=== PATIENT | female | born 2000 | race Caucasian/White ===

== ENCOUNTER 2022-03-02 05:16 | Inpatient (IN) ==
--- NOTE | 2022-02-23 11:17 | Anesthesiology Consultation ---
Date of Service February 23, 2022 Assessment & Plan (1) Encounter for pre-operative examination: COVID screening: Per assessment on 02/23: No known COVID-19 positive contacts or current COVID-19 related symptoms. Travel screen negative. At surgeon discretion if preop Covid testing being done. Chart Review Chart Review: dividend deposit entry clerk initiated History Surgery Operation Date: 03/02/22 07:30 Proposed Procedures p Repeat Section in LD - Trace Mariee MD Height/Weight Height: 5 ft 3 in Weight: 115.212 kg Allergies Allergy/AdvReac Type Severity Reaction Status Date / Time No Known Allergies Allergy Verified 11/12/21 23:54 Medications Home Medications Medication Instructions Recorded Confirmed Last Taken cyanocobalamin (vitamin B-12) 100 100 mcg PO DAILY 11/12/21 02/23/22 02/20/22 09:00 mcg tablet (Vitamin B-12) iron,carbonyl 65 mg-vitamin C 125 1 tab PO DAILY 11/12/21 02/23/22 02/20/22 09 :00 mg tablet,delayed release (Vitron-C) prenat.vits,cheri,ego-mvsi-wzfkj 1 tab PO DAILY 11/12/21 02/23/22 02/20/22 09:00 folic acid 1 mg tablet 1 mg PO DAILY 02/07/22 02/23/22 02/20/22 09:00 albuterol sulfate 90 mcg/actuation 1 inh inhalation QID PRN SOB 02/23/22 02/23/22 Unknown aerosol inhaler Past Medical History Medical History (Updated 02/23/22 @ 11:16 by Alina Thomson) Anemia IRON INFUSIONS > LAST 12/2021 Anxiety and depression Asthma History of COVID-19 2019 > NO PROBLEMS/RESOLVED History of hypertension PTSD (post-traumatic stress disorder) SAB (spontaneous ) 03/2021 Past Family History Family History Mother Hypertension Grandmother (Paternal) Diabetes Grandfather (Maternal) Cancer Aunt Cancer Other No family history of adverse response to anesthesia Past Surgical History Surgical History H/O knee surgery LEFT History of delivery 3 hour push History of tooth extraction Social History Smoking Status: Never smoker Hx Alcohol Use: No Hx Substance Use: No substance use type: does not use Lab Results Anesthesia Preop Results Results Anesthesia Widget: WBC 15.48 K/ul (4.8-10.8) H 02/21/22 Hgb 12.1 g/dl (12.0-16.0) 02/21/22 Hct 35.8 % (34.1-44.9) 02/21/22 Plt 223 K/uL (130-400) 02/21/22 Na 136 mmol/L (136-145) 02/21/22 K 3.6 mmol/L (3.5-5.1) 02/21/22 Cl 104 mmol/L (98-107) 02/21/22 CO2 23 mmol/L (21-32) 02/21/22 BUN 5 mg/dl (6-23) L 02/21/22 Creat 0.41 mg/dl (0.6-1.2) L 02/21/22 Glucose Level 91 mg/dl (70-99(Fasting)) 02/21/22
[~2022-03-02 05:16] MED LIST: SODIUM CHLORIDE 0.9% 250 ML IV PRN
[2022-03-02] MEDS ORDERED: LACTATED RINGER'S 1,000 ML IV SCH (06:00)
[2022-03-02] MEDS ORDERED: ceFAZolin 3,000 MG in DEXTROSE 5% 50 ML IV SCH (06:00)
[2022-03-02] MEDS ORDERED: CITRIC ACID/SODIUM CITRATE 15 ML UDC PO SCH (06:00)
[2022-03-02 06:34] LABS: Basophils # (auto) 0.06 K/uL (0-0.2); Basophils % (auto) 0.4 %; Eosinophils % (auto) 0.6 %; Hematocrit (blood only) 34.9 % (34.1-44.9); Hemoglobin 11.9 g/dl (12.0-16.0); Immature Granulocytes # (auto) 0.13 K/uL (0.00-0.02); Immature Granulocytes % (auto) 0.8 %; Lymphocytes # (auto) 2.97 K/uL (1.2-3.4); Lymphocytes % (auto) 18.5 %; Mean Corpuscular Hemoglobin 29.4 pg (25.0-34.0); Mean Corpuscular Hgb Conc 34.1 g/dL (32.0-36.0); Mean Corpuscular Volume 86.2 fL (80.0-100.0); Mean Platelet Volume 10.3 fL (9.4-12.3); Monocytes # (auto) 1.13 K/uL (0.24-0.82); Neutrophils # (auto) 11.67 K/uL (1.4-6.5); Neutrophils % (auto) 72.7 %; Platelet Count 221 K/uL (130-400); RDW Coefficient of Variation 15.9 % (11.5-14.5); RDW Standard Deviation 50.1 fL (36.4-46.3); Red Blood Count 4.05 M/uL (3.93-5.22); White Blood Count 16.06 K/ul (4.8-10.8)
[2022-03-02] MEDS ORDERED: ONDANSETRON INJ 2 MG/ML 2 ML VIAL ONE (06:59)
[2022-03-02] MEDS ORDERED: fentaNYL citrate 100 MCG/2 ML VIAL ONE (06:59)
[2022-03-02] MEDS ORDERED: MoRPHine SULFATE PF 1 MG/ML 10 ML AMP/VIAL ONE (06:59)
[2022-03-02] MEDS ORDERED: PHENYLEPHRINE HCL 10 MG/ML VIAL ONE (07:00)
[2022-03-02] MEDS ORDERED: KETOROLAC 30 MG/ML VIAL ONE (07:00)
[2022-03-02] MEDS ORDERED: OXYTOCIN 10 UNITS/ML VIAL ONE (07:14)
[2022-03-02] MEDS ORDERED: miSOPROStoL 200 MCG TAB ONE (07:16)
--- NOTE | 2022-03-02 08:14 | History & Physical Bridge Note ---
Date of Service March 02, 2022 History & Physical Bridge Note I have examined the patient, reviewed the History & Physical and in the interval since the performance of the History & Physical I have noted the following changes of clinical significance: no changes noted
[2022-03-02] MEDS ORDERED: ACETAMINOPHEN 1,000 MG/100 ML VIAL IV PRN (08:45)
[2022-03-02] MEDS ORDERED: ONDANSETRON INJ 2 MG/ML 2 ML VIAL IV PRN (08:45)
[2022-03-02] MEDS ORDERED: DC INTRASPINAL MORPHINE SCH (08:45)
[2022-03-02] MEDS ORDERED: MoRPHine SULFATE PF 1 MG/ML 10 ML AMP/VIAL INT SPINAL ONE (08:45)
[2022-03-02] MEDS ORDERED: NALOXONE HCL 0.4 MG/1 ML VIAL/CARP IV PRN (08:45)
[2022-03-02] MEDS ORDERED: NALOXONE HCL 1 MG in SODIUM CHLORIDE 0.9% 1000ML 1,000 ML IV PRN (08:45)
[2022-03-02] MEDS ORDERED: HYDROmorphone INJ 0.5 MG/0.5 ML SYR IV PRN (08:45)
[2022-03-02] MEDS ORDERED: SODIUM CHLORIDE 0.9% 1000ML 1,000 ML IV SCH (08:45)
[2022-03-02] MEDS ORDERED: ePHEDrine sulfate 50 MG/ML AMP IV PRN (08:45)
[2022-03-02] MEDS ORDERED: NALOXONE HCL 0.08 MG in SYRINGE 1.8 ML IV PRN (08:45)
[2022-03-02] MEDS ORDERED: diphenhydrAMINE 50 MG/ML VIAL IV PRN (08:45)
[2022-03-02] MEDS ORDERED: LACTATED RINGER'S 500 ML IV PRN (08:45)
[2022-03-02] MEDS ORDERED: NO NARCOTICS OR SEDATIVES SCH (08:45)
[2022-03-02] MEDS ORDERED: PROMETHAZINE HCL 6.25 MG in SODIUM CHLORIDE 0.9% 50 ML IV PRN (08:45)
[2022-03-02] MEDS ORDERED: NALBUPHINE HCL INJ 10 MG/ML AMP IV PRN (08:45)
--- NOTE | 2022-03-02 09:29 | Post Operative Brief Note ---
Immediate Post Op Note v1 Date of Surgery March 02, 2022 Pre & Post Diagnosis Operation Date: 03/02/22 07:30 <No data on this case meets the specified criteria> I identified the patient and participated in the time-out.: Yes Procedure Operation Date: 03/02/22 07:30 <No data on this case meets the specified criteria> Surgeon Trace Mariee MD Ticket Collector Francesca ARTHUR Estimated Blood Loss 500 Findings Consistent with Post-Op Diagnosis Live male with Apgars 8/9 weight pending Fluids LR 1000 ml. Specimens placenta Drains Valdovinos Catheter Complications none Overlapping Procedure I was present for: the critical portions of procedure. I was immediately available: during the entire case. Back up surgeon: was not required during procedure.
--- NOTE | 2022-03-02 09:54 | Anesthesiology Progress Note ---
Date of Service March 02, 2022 Anesthesia Post Procedure Vital Signs Vital Signs: Temp Pulse Resp BP Pulse Ox 03/02/22 05:43 98.6 F 18 03/02/22 09:50 77 96 03/02/22 09:47 71 94 03/02/22 09:46 76 100/50 L 03/02/22 09:45 73 95 03/02/22 06:59 98.2 F 81 20 107/55 L 03/02/22 05:41 100 H 127/57 L Transfer of Care Handoff Completed per policy Notes Mental Status: alert / awake / arousable and participated in evaluation Patient Amnestic to Procedure: Yes Nausea / Vomiting: adequately controlled Pain: adequately controlled Airway Patency, RR, SpO2: stable & adequate BP & HR: stable & adequate Hydration State: stable & adequate Neuraxial Anesthesia: was administered and sensory block is resolving Anesthetic Complications: no major complications apparent and Pt Satisfied with anesthetic care
[2022-03-02] MEDS ORDERED: SENNA 8.6 MG TAB PO PRN (10:06)
[2022-03-02] MEDS ORDERED: HYDROCORTISONE ACETATE 25 MG SUPP PR PRN (10:06)
[2022-03-02] MEDS ORDERED: BENZOCAINE 20% AER SPR 82.5 GM CAN EXT PRN (10:06)
[2022-03-02] MEDS ORDERED: MAGNESIUM HYDROXIDE SUSP 30 ML UDC PO PRN (10:06)
[2022-03-02] MEDS ORDERED: DIPHTHERIA/TETANUS/PERTUSSIS 0.5 ML SYR/VIAL IM ONE (10:06)
[2022-03-02] MEDS ORDERED: OXYTOCIN 20 UNITS in LACTATED RINGER'S 1,000 ML IV SCH (10:30)
[2022-03-02] MEDS: SIMETHICONE 80 MG CHEW PO SCH ×3 (13:23→19:33)
[2022-03-02] MEDS: KETOROLAC 30 MG/ML VIAL IV PRN ×2 (13:25→19:33)
[2022-03-02] MEDS: LACTATED RINGER'S 1,000 ML IV SCH ×3 (18:51→23:01)
[2022-03-02] MEDS: DOCUSATE SODIUM 100 MG CAP PO SCH (19:33)
[2022-03-03] MEDS ORDERED: KETOROLAC 30 MG/ML VIAL IV PRN (02:45)
[2022-03-03] MEDS ORDERED: ONDANSETRON INJ 2 MG/ML 2 ML VIAL IV PRN (02:45)
[2022-03-03] MEDS ORDERED: MEPERIDINE HCL 50 MG/ML CARP IV PRN (02:45)
[2022-03-03] MEDS ORDERED: diphenhydrAMINE 50 MG/ML VIAL IV PRN (02:45)
[2022-03-03] MEDS ORDERED: PROMETHAZINE HCL 25 MG in SODIUM CHLORIDE 0.9% 50 ML IV PRN (02:45)
[2022-03-03] MEDS ORDERED: diphenhydrAMINE Capsule 25 MG CAP PO PRN (02:45)
[2022-03-03] MEDS: IBUPROFEN 600 MG TAB PO PRN ×4 (03:29→23:05)
[2022-03-03] MEDS: oxyCODONE/ACETAMINOPHEN 5mg/325mg TAB PO PRN ×4 (03:29→23:05)
[2022-03-03 07:20] LABS: Basophils # (auto) 0.05 K/uL (0-0.2); Basophils % (auto) 0.3 %; Eosinophils # (auto) 0.08 K/uL (0-0.50); Eosinophils % (auto) 0.5 %; Hematocrit (blood only) 33.5 % (34.1-44.9); Hemoglobin 11.4 g/dl (12.0-16.0); Immature Granulocytes # (auto) 0.13 K/uL (0.00-0.02); Immature Granulocytes % (auto) 0.8 %; Lymphocytes # (auto) 2.73 K/uL (1.2-3.4); Lymphocytes % (auto) 16.3 %; Mean Corpuscular Hemoglobin 29.5 pg (25.0-34.0); Mean Corpuscular Volume 86.8 fL (80.0-100.0); Mean Platelet Volume 10.1 fL (9.4-12.3); Monocytes # (auto) 1.38 K/uL (0.24-0.82); Monocytes % (auto) 8.2 %; Neutrophils # (auto) 12.38 K/uL (1.4-6.5); Neutrophils % (auto) 73.9 %; Platelet Count 217 K/uL (130-400); RDW Coefficient of Variation 15.9 % (11.5-14.5); RDW Standard Deviation 50.8 fL (36.4-46.3); Red Blood Count 3.86 M/uL (3.93-5.22); White Blood Count 16.75 K/ul (4.8-10.8)
--- NOTE | 2022-03-03 08:01 | Operative Report (OR) ---
PREOPERATIVE DIAGNOSES: Term elective repeat section. POSTOPERATIVE DIAGNOSES: Term elective repeat section. PROCEDURE: Repeat section, low segment transverse. SURGEON: Trace Mariee MD ENERGY MANAGEMENT SPECIALIST: JERSON Peters. ANESTHESIA: Spinal. COMPLICATIONS: None. FINDINGS: Live male, Apgars 8 and 9, weight pending. TOTAL FLUIDS: LR 1000 mL. DRAINS: Valdovinos. COMPLICATIONS: None. ESTIMATED BLOOD LOSS: 500 mL. CLINICAL HISTORY: The patient is a 21-year-old female, 3, para 1-0-1-1, who was admitted for a term elective repeat section at 39.2 weeks. The patient declined a trial of labor. Timeout was called prior to start of procedure, and antibiotics were given prior to the start. DESCRIPTION OF PROCEDURE: Under satisfactory spinal anesthesia, the patient was prepped and draped in the usual sterile fashion. A low Pfannenstiel incision through a prior incision was made and carrying the incision down through the layers of the abdomen into the peritoneal cavity without difficulty. Upon entering into the abdominal cavity, the bladder flap was developed with sharp dissection. A low segment transverse incision over the lower uterine segment was made. The incision was widened in the AP diameter and then nicked with an Allis clamp. Clear fluid was noted. The was then delivered from the vertex presentation with the aid of fundal pressure and the baby was delivered without incident. The cord was doubly clamped and cut after a 1 minute cord delay. Apgars were 8 and 9. weight was pending. The baby was handed to the packing and stamping machine operator waiting. Cord blood was obtained. Placenta delivered spontaneously and intact. The placenta was then submitted to pathology as a separate specimen. Uterus was then exteriorized. Ring forceps were then placed on both angles in the inferior margin. Another ring used to dilate the cervix. The uterus was closed in a double layer closure with 0 Vicryl suture in a continuous interlocking fashion followed by a second imbricating suture. Tubes and ovaries bilaterally were found to be within normal limits. The initial sponge, needle, and instrument count were found to be correct. Contents of the abdominal and pelvic cavity were then irrigated. Uterus was placed back into the normal anatomical position. The muscle was then reapproximated with several bhhjnu-eo-[id number] sutures, followed by irrigation, and the fascia was then reapproximated from both ends using 0 Vicryl suture in a continuous fashion. Subcuticular space was then irrigated. Bleeders cauterized and the subcuticular space was closed with 3-0 plain suture and the skin was then reapproximated with 4-0 Monocryl suture. The MARK dressing was then applied. Clear urine was noted from the Valdovinos. Estimated blood loss, 500 mL. The final sponge, needle and instrument count were found to be correct. The patient was then placed supine on a stretcher and she was moved to recovery room in stable condition. Attestation: Please note that JERSON Peters was needed at surgery to assist with retraction, help with fundal pressure to deliver the baby, help with closure of uterus and abdomen. Job ID: [id number] [facility]
[2022-03-03] MEDS: ASCORBIC ACID 500 MG TAB PO SCH (08:41)
[2022-03-03] MEDS: FOLIC ACID 1 MG TAB PO SCH (08:41)
[2022-03-03] MEDS: DOCUSATE SODIUM 100 MG CAP PO SCH ×2 (08:41→21:36)
[2022-03-03] MEDS: SIMETHICONE 80 MG CHEW PO SCH ×4 (08:41→21:36)
[2022-03-03] MEDS: FERROUS SULFATE 325 MG TAB PO SCH (08:41)
[2022-03-03] MEDS: PRENATAL VITAMIN 1 TAB PO SCH (08:41)
[2022-03-03] MEDS: CYANOCOBALAMIN (B-12) 100 MCG TABLET PO SCH (08:41)
[2022-03-03] MEDS ORDERED: NON-FORMULARY MEDICATION (Prenat.Vits,Cal,Min-Iron-Folic Tablet) PO SCH (09:00)
--- NOTE | 2022-03-03 09:10 | Obstetrical Progress Note ---
Date of Service March 03, 2022 Assessment & Plan Admission and Anticipated Discharge Date Admission Date: March 02, 2022 Subjective Patient is seen and examined. She feels well, no complaints. Pain is under control with oral meds. Ambulating without dizziness Voiding without difficulty Tolerating regular diet with out N&V Flatus + BM neg Bleeding is minimal No fever/ chills/ CP/ SOB/ N&V/ Leg pain Breast feeding without problems Vital Signs Temp Pulse Resp BP Pulse Ox O2 Del Method 03/03/22 03:00 36.8 C 82 16 98/63 L 97 Room Air 03/03/22 02:00 16 99 03/03/22 01:00 16 97 03/03/22 03:00 97 H 16 L 03/03/22 00:00 16 95 03/02/22 22:00 16 99 03/02/22 23:30 36.8 C 81 16 98/63 L 97 Room Air 03/02/22 23:30 16 97 Lab Results 03/02/22 03/02/22 03/02/22 Range/Units 06:12 06:12 Unknown WBC 16.06 H (4.8-10.8) K/ul RBC 4.05 (3.93-5.22) M/uL Hgb 11.9 L (12.0-16.0) g/dl Hct 34.9 (34.1-44.9) % MCV 86.2 (80.0-100.0) fL MCH 29.4 (25.0-34.0) pg MCHC 34.1 (32.0-36.0) g/dL RDW Std Deviation 50.1 H (36.4-46.3) fL RDW Coeff of Louis 15.9 H (11.5-14.5) % Plt Count 221 (130-400) K/uL MPV 10.3 (9.4-12.3) fL Immature Gran % (Auto) 0.8 % Neut % (Auto) 72.7 % Lymph % (Auto) 18.5 % [place] % (Auto) 7.0 % Eos % (Auto) 0.6 % Baso % (Auto) 0.4 % Neut # (Auto) 11.67 H (1.4-6.5) K/uL Lymph # (Auto) 2.97 (1.2-3.4) K/uL [place] # (Auto) 1.13 H (0.24-0.82) K/uL Eos # (Auto) 0.10 (0-0.50) K/uL Baso # (Auto) 0.06 (0-0.2) K/uL Immature Gran # (Auto) 0.13 H (0.00-0.02) K/uL SARS-CoV-2, RNA, NAAT NEGATIVE (NEGATIVE) Blood Type A Positive Antibody Screen NEGATIVE Crossmatch See Detail 03/03/22 Range/Units 06:52 WBC 16.75 H (4.8-10.8) K/ul RBC 3.86 L (3.93-5.22) M/uL Hgb 11.4 L (12.0-16.0) g/dl Hct 33.5 L (34.1-44.9) % MCV 86.8 (80.0-100.0) fL MCH 29.5 (25.0-34.0) pg MCHC 34.0 (32.0-36.0) g/dL RDW Std Deviation 50.8 H (36.4-46.3) fL RDW Coeff of Louis 15.9 H (11.5-14.5) % Plt Count 217 (130-400) K/uL MPV 10.1 (9.4-12.3) fL Immature Gran % (Auto) 0.8 % Neut % (Auto) 73.9 % Lymph % (Auto) 16.3 % [place] % (Auto) 8.2 % Eos % (Auto) 0.5 % Baso % (Auto) 0.3 % Neut # (Auto) 12.38 H (1.4-6.5) K/uL Lymph # (Auto) 2.73 (1.2-3.4) K/uL [place] # (Auto) 1.38 H (0.24-0.82) K/uL Eos # (Auto) 0.08 (0-0.50) K/uL Baso # (Auto) 0.05 (0-0.2) K/uL Immature Gran # (Auto) 0.13 H (0.00-0.02) K/uL SARS-CoV-2, RNA, NAAT (NEGATIVE) Blood Type Antibody Screen Crossmatch PE: General: Alert, orientedx3, NAD CVS: S1S2 RRR Lungs; CTAB Abd: soft, NT, ND, BS+, fundus firm, below Umbilicus Incision/ MARK Dressing: Clean, dry, intact Perineum intact, Lochia rubra minimal Ext; NT, no edema AP: 21 yo s/p C Section, pod# 1 VSS Afebrile doing well Continue routine postop care Encourage ambulation, PO intake All questions were answered D/C home tomorrow Results & Data ([facility]) Vital Signs (Past 12 Hours) Vital Signs Temp Pulse Resp BP Pulse Ox O2 Del Method 03/03/22 03:00 36.8 C 82 16 98/63 L 97 Room Air 03/03/22 02:00 16 99 03/03/22 01:00 16 97 03/03/22 03:00 97 H 16 L 03/03/22 00:00 16 95 03/02/22 22:00 16 99 03/02/22 23:30 36.8 C 81 16 98/63 L 97 Room Air 03/02/22 23:30 16 97
[2022-03-03] MEDS ORDERED: bisacodyL 5 MG TABEC PO SCH (20:00)
[2022-03-04] MEDS: oxyCODONE/ACETAMINOPHEN 5mg/325mg TAB PO PRN ×3 (03:34→11:42)
[2022-03-04] MEDS: IBUPROFEN 600 MG TAB PO PRN ×3 (03:34→11:42)
[2022-03-04 07:07] LABS: Hematocrit (blood only) 31.3 % (34.1-44.9); Hemoglobin 10.5 g/dl (12.0-16.0)
[2022-03-04] MEDS: SIMETHICONE 80 MG CHEW PO SCH (07:36)
[2022-03-04] MEDS: PRENATAL VITAMIN 1 TAB PO SCH (07:39)
[2022-03-04] MEDS: DOCUSATE SODIUM 100 MG CAP PO SCH (07:39)
[2022-03-04] MEDS: FERROUS SULFATE 325 MG TAB PO SCH (07:39)
[2022-03-04] MEDS: ASCORBIC ACID 500 MG TAB PO SCH (08:00)
[2022-03-04] MEDS: FOLIC ACID 1 MG TAB PO SCH (08:00)
[2022-03-04] MEDS: CYANOCOBALAMIN (B-12) 100 MCG TABLET PO SCH (08:01)
[2022-03-04] MEDS ORDERED: bisacodyL 10 MG SUPP PR PRN (09:30)
--- NOTE | 2022-03-04 10:49 | Obstetrical Progress Note ---
Date of Service March 04, 2022 Subjective Ambulation: ambulating normally Voiding: no voiding problems Passing Gas:: Yes Diet Tolerance:: regular diet Lochia:: Small Feeding Type:: breast feeding Current Pain Level(1-10): 0 doing well. wants to go home Physical Exam Constitutional WD/WN, vitals as above Gastrointestinal (Abdomen) Inspection/Auscultation: abdomen normal to inspection and + abdominal surgical incision abdomen soft and non-tender. fundus firm Musculoskeletal Extremities: extremities normal to inspection Skin no rashes, warm and dry Neurologic patellar DTR's 2+ bilat, sensation intact Psychiatric A+Ox3, euthymic affect Results & Data ([facility]) Vital Signs (Past 12 Hours) Vital Signs Temp Pulse Resp BP Pulse Ox O2 Del Method 03/04/22 08:00 36.4 C L 75 16 103/67 97 Room Air 03/04/22 03:30 36.8 C 72 18 105/62 Laboratory Results 03/02/22 03/02/22 03/02/22 06:12 06:12 Unknown WBC 16.06 H RBC 4.05 Hgb 11.9 L Hct 34.9 MCV 86.2 MCH 29.4 MCHC 34.1 RDW Std Deviation 50.1 H RDW Coeff of Louis 15.9 H Plt Count 221 MPV 10.3 Immature Gran % (Auto) 0.8 Neut % (Auto) 72.7 Lymph % (Auto) 18.5 [place] % (Auto) 7.0 Eos % (Auto) 0.6 Baso % (Auto) 0.4 Neut # (Auto) 11.67 H Lymph # (Auto) 2.97 [place] # (Auto) 1.13 H Eos # (Auto) 0.10 Baso # (Auto) 0.06 Immature Gran # (Auto) 0.13 H SARS-CoV-2, RNA, NAAT NEGATIVE Blood Type A Positive Antibody Screen NEGATIVE Crossmatch See Detail 03/03/22 03/04/22 06:52 06:43 WBC 16.75 H RBC 3.86 L Hgb 11.4 L 10.5 L Hct 33.5 L 31.3 L MCV 86.8 MCH 29.5 MCHC 34.0 RDW Std Deviation 50.8 H RDW Coeff of Louis 15.9 H Plt Count 217 MPV 10.1 Immature Gran % (Auto) 0.8 Neut % (Auto) 73.9 Lymph % (Auto) 16.3 [place] % (Auto) 8.2 Eos % (Auto) 0.5 Baso % (Auto) 0.3 Neut # (Auto) 12.38 H Lymph # (Auto) 2.73 [place] # (Auto) 1.38 H Eos # (Auto) 0.08 Baso # (Auto) 0.05 Immature Gran # (Auto) 0.13 H SARS-CoV-2, RNA, NAAT Blood Type Antibody Screen Crossmatch
--- NOTE | 2022-03-12 12:45 | Discharge Summary (DS) ---
DATE OF ADMISSION: 03/02/2022. DATE OF DISCHARGE: 03/04/2022. REASON FOR ADMISSION AND HOSPITAL COURSE: The patient is a 41-year-old female, 3, para 1-0-1 -1, admitted for elective term repeat section at 39.2 weeks. She declined a trial of labor, and was admitted for repeat section. section was done under spinal anesthesia, de livering a live male. Apgars were 8 and 9. Hospital course was unremarkable. The patient was disch arged home in stable condition on 03/04/2022. Home going instructions were given. The patient daniela ated the procedure. She will be followed up in the office in one week. Regular diet on discharge. Job ID: [id number]
== END 2022-03-04 12:15 | disposition home or self-care (01) | DRG 788 ==
LOC: 4S1 05:16 → EDSTATUS 07:30 → 4E2 12:23

== ENCOUNTER 2023-09-14 05:40 | Inpatient (IN) ==
--- NOTE | 2023-08-30 16:13 | Anesthesiology Consultation ---
Date of Service August 30, 2023 Assessment & Plan (1) Encounter for pre-operative examination: Infectious disease screening: Per assessment on 08/30/23: No known recent infectious disease contacts or current infectious disease symptoms. Chart Review Chart Review: entry level initiated History Surgery Operation Date: 09/14/23 07:30 Proposed Procedures p Repear Section, - Shawn Navarro MD s With Bilateral Tubal Ligation - Shawn Navarro MD Height/Weight Height: 5 ft 3 in Weight: 117.934 kg Allergies Allergy/AdvReac Type Severity Reaction Status Date / Time No Known Allergies Allergy Verified 08/30/23 15:43 Medications Home Medications Medication Instructions Recorded Confirmed Last Taken albuterol sulfate 90 mcg/actuation 2 inh inhalation Q6H PRN sob 08/30/23 08/30/23 Unknown breath activated powder inhaler,sensor Past Medical History Medical History Asthma History of anemia Hx iron infusions History of anxiety History of depression History of induced hypertension Denies current issues PTSD (post-traumatic stress disorder) SAB (spontaneous ) 03/2021 Past Family History Family History Mother Hypertension Grandmother (Paternal) Diabetes Grandfather (Maternal) Cancer Aunt Cancer Other No family history of adverse response to anesthesia Past Surgical History Surgical History H/O knee surgery left History of delivery x2 03/02/2022, [facility]- SAB History of tooth extraction Social History Smoking Status: Never smoker Hx Alcohol Use: No Hx Substance Use: No substance use type: does not use Testing Chest X-Ray Date: 03/21/23 FINDINGS: Lung volumes are mildly diminished. Lungs are clear. There is no pneumothorax or pleural effusion. Cardiac size is normal. Mediastinal contours are normal. There is no evidence for pulmonary edema. IMPRESSION: No acute cardiopulmonary findings.
[2023-09-14] MEDS ORDERED: ceFAZolin 3,000 MG in SYRINGE 0 ML IV SCH (06:00)
[2023-09-14 06:16] LABS: Basophils # (auto) 0.05 K/uL (0.00-0.20); Basophils % (auto) 0.3 %; Eosinophils # (auto) 0.06 K/uL (0.00-0.50); Eosinophils % (auto) 0.4 %; Hematocrit (blood only) 34.9 % (37.0-47.0); Hemoglobin 11.7 g/dl (12.0-16.0); Immature Granulocytes # (auto) 0.07 K/uL (0.01-0.20); Immature Granulocytes % (auto) 0.5 %; Lymphocytes # (auto) 3.06 K/uL (1.20-3.40); Lymphocytes % (auto) 20.3 %; Mean Corpuscular Hemoglobin 28.1 pg (25.0-34.0); Mean Corpuscular Hgb Conc 33.5 g/dL (32.0-36.0); Mean Corpuscular Volume 83.9 fL (80.0-100.0); Mean Platelet Volume 10.8 fL (9.4-12.4); Monocytes # (auto) 0.96 K/uL (0.11-0.59); Monocytes % (auto) 6.4 %; Neutrophils # (auto) 10.88 K/uL (1.40-6.50); Neutrophils % (auto) 72.1 %; Platelet Count 209 K/uL (130-400); RDW Coefficient of Variation 13.7 % (11.5-14.5); RDW Standard Deviation 41.8 fL (36.4-46.3); Red Blood Count 4.16 M/uL (4.20-5.40); White Blood Count 15.08 K/ul (4.8-10.8)
--- NOTE | 2023-09-14 08:41 | History & Physical Bridge Note ---
Date of Service September 14, 2023 History & Physical Bridge Note I have examined the patient, reviewed the History & Physical and in the interval since the performance of the History & Physical I have noted the following changes of clinical significance: no changes noted Patient desires repeat and bilateral tubal ligation for permanent sterilization. Nonsurgical reversible contraceptive options including control pills injections IUD, ParaGard which is good for 10 years. We discussed that she will ligations irreversible and regret rate. She understands all and she still desires permanent sterilization with her repeat today. She signed an informed consent. All questions were answered.
[2023-09-14] MEDS ORDERED: METOCLOPRAMIDE HCL 10 MG in SODIUM CHLORIDE 0.9% 50 ML IV PRN (09:16)
[2023-09-14] MEDS ORDERED: ePHEDrine sulfate 50 MG/ML AMP IV PRN (09:16)
[2023-09-14] MEDS ORDERED: ACETAMINOPHEN 1,000 MG/100 ML VIAL IV STA (09:16)
[2023-09-14] MEDS ORDERED: NALOXONE HCL 0.08 MG in SYRINGE 1.8 ML IV PRN (09:16)
[2023-09-14] MEDS ORDERED: diphenhydrAMINE 50 MG/ML VIAL IV PRN (09:16)
[2023-09-14] MEDS ORDERED: NALOXONE HCL 0.4 MG/1 ML VIAL/CARP IV PRN (09:16)
[2023-09-14] MEDS ORDERED: HYDROmorphone INJ 0.5 MG/0.5 ML SYR IV PRN (09:16)
[2023-09-14] MEDS ORDERED: NALBUPHINE HCL 5 MG in SYRINGE 0 ML IV PRN (09:16)
[2023-09-14] MEDS ORDERED: DROPERIDOL 5 MG/2 ML VIAL IV PRN (09:16)
[2023-09-14] MEDS ORDERED: MEPERIDINE HCL 25 MG/ML CARP/VIAL IV PRN (09:16)
[2023-09-14] MEDS ORDERED: MoRPHine SULFATE PF 1 MG/ML 10 ML AMP/VIAL INT SPINAL ONE (09:16)
[2023-09-14] MEDS ORDERED: NALOXONE HCL 1 MG in SODIUM CHLORIDE 0.9% 1,000 ML IV PRN (09:16)
[2023-09-14] MEDS ORDERED: PROMETHAZINE HCL 6.25 MG in SODIUM CHLORIDE 0.9% 50 ML IV PRN (09:16)
[2023-09-14] MEDS ORDERED: MoRPHine SULFATE 2 MG/ML CARP IV PRN (09:16)
[2023-09-14] MEDS ORDERED: KETOROLAC 30 MG/ML VIAL IV PRN (09:16)
[2023-09-14] MEDS ORDERED: LACTATED RINGER'S 500 ML IV PRN (09:16)
--- OUTSIDE RECORDS SUMMARY | 2023-09-14 09:17 | External Medical Summary | Summary of Care ---
Author Name Unknown Organization [facility] Address [address] [place] [address] Phone [phone] Care Team Providers Care Insurance Claims Adjuster Name Role Phone Shabbir Thompson MD Primary Care Provider [phone] [phone] Reason for Visit * Reason Comments Return Visit Non Stress Test Encounter Details Date Type Department Care Team (Late st Contact Info) Description 09/07/2023 1:45 PM EDT Office Visit Gynecology/Obstetric s [facility] [address] [facility] [place] [address] Dinorah Haider CRNP [address] [place] [address] [facility]der, Non Stress Tests [facility] [address] [facility] [place] [address] High-risk in third trimester*; History of gestational hypertension; History of delivery; Obesity in , antepartum; Maternal asthma complicating ; Short interval between pregnancies complicating , antepartum Allergies No known active allergiesdocumented as of this encounter (statuses as of 09/07/2023) Medications Medication Sig Dispensed Refills Start Date End Date Status Gummies 0.18-25 MG Oral Tablet Chewable Take by mouth . Acti ve Aspirin 81 MG Oral Tablet Delayed Release Take 1 Tablet by mouth in the morning. Active metroNIDAZOLE 500 MG Oral Tablet (Flagyl) Take 1 Tablet by mouth in the morning and 1 Tablet before bedtime. X 7 days until gone.. 14 Tablet 07/22/2023 Active documented as of this encounter (statuses as of 09/07/2023) Active Problems Problem Noted Date Diagnosed Date High-risk 03/04/2023 Short interval between pregn ancies complicating , antepartum 03/04/2023 Overview: Last delivery C/S 02/2022 Maternal asthma complicating Overview: Managed with albuterol as needed Reports has an albuterol inhaler 02/09/23 last albuterol use 2021 Reports had RSV as a young child and required oxygen Last Assessment & Plan: CONSIDERATIONS: Asthma symptoms may improve, worsen or remain unchanged in severity in . Asthma is generally managed the same in as in the non- patient, as asthma-control medications are considered safe in . If asthma is well-controlled with medications prior to , it is recommended to continue the same medication regimen during . A patient should seek medical care immediately if an asthma flare does not respond to therapy. Mild and well-controlled moderate asthma can be associated with excellent maternal and outcomes. Severe and poorly controlled asthma may be associated with increased morbidity and mortality. Asthma management includes monitoring of lung function with pulmonary function testing (when indicated), avoidance of triggers (such as tobacco smoke, mold, dust mite exposure, animal dander and cockroaches), and a step-care approach to pharmacologic therapy based on the severity of the patient's asthma. RECOMMENDATIONS: Inhaled corticosteroids are the mainstay of therapy for all patients except those with intermittent asthma. If patients are routinely requiring rescue inhaler (such as albuterol, Ventolin, ProAir, Atrovent, or Proventil) use more than twice weekly, we recommend adding a low-dose inhaled corticosteroid. [Pulmicort (budesonide) is preferred to use in .] If patients are routinely requiring rescue inhaler use daily, we recommend adding a combined low-dose inhaled corticosteroid/long-acting beta-agonist [such as Advair (fluticasone/salmeterol) or Symbicort (budesonide/formoterol)] or a medium dose inhaled corticosteroid. Patient should discuss these treatment options with her primary OB provider or PCP. Typically, patients do not need stress dose steroids as long as they continue their usual dose perioperatively (or during labor) and do not have primary renal failure or other problems with the pituitary axis. Medications such as prostaglandin F2a (including Hemabate), ergonovine, and indomethacin (in patients who are aspirin allergic) should be used with caution. Patients with moderate or severe persistent asthma should have Maternal- Medicine ultrasound for anatomy at 19-20 weeks. surveillance with growth ultrasounds and non-stress tests should be considered starting at 32 weeks. Obesity in , antepartum 02/08/2023 Overview: Pregravid BMI 45.35 Early glucose screen ordered; not complete to date Growth q4 wks, NST 34 wks, deliver by [facility] Last Assessment & Plan: I reviewed the ultrasound. The overall estimated weight is consistent with the 70th percentile for the gestational age and the anatomy that was visualized appears unremarkable. The fetus is in the vertex presentation and the amniotic fluid volume is normal at 19 cm. As the patient is currently 37 weeks of gestation, there is no clinical indication for return at this time. Obesity, Class III, BMI 40-49.9 (morbid obesity) 02/04/2023 History of gestational hypertension 02/04/2023 Overview: History of gestational hypertension in 2020 Denies history of chronic hypertension Baseline Preeclampsia Labs Lab Results Component Value Date/Time PLATELET AUTO - [facility] 342 02/04/2023 02:22 PM CREATININE - [facility] 1.0 02/04/2023 02:22 PM AST - [facility] 17 02/04/2023 02:22 PM ALT - [facility] 18 02/04/2023 02:22 PM PROTEIN/ CREATININE RATIO, URINE - [facility] 42 02/04/2023 02:23 PM Encouraged aspirin 81 mg therapy at 13 weeks (03/10/23) Last Assessment & Plan: CONSIDERATIONS: Explained to patient that in a woman who has always had normal blood pressures, gestational hypertension (GHTN) is defined as persistent elevations in her BP after 20 weeks gestation. Elevated BP is defined as greater than or equal to 140mmHg systolic or greater than 90mmHg diastolic on two separate occasions at least 4 hours apart after 20 weeks gestation. Explained to patient that women with hypertension during are at significantly increased risk for placental abruption, pre-eclampsia/eclampsia, delivery, gestational diabetes, growth restriction, stillbirth, delivery, hemorrhage, and maternal morbidity. These risks are related to the severity of the hypertension RECOMMENDATIONS: Recommend patient be followed clinically. Also recommend labwork with AST/ALT and platelets, and urine protein screen. If diagnosed with gestational hypertension recommend Maternal Medicine ultrasound for growth within 1 week of GHTN diagnosis and then every 4 weeks thereafter. Reviewed that GHTN, pre-eclampsia and HELLP are not preventable conditions. There is some evidence that daily ASA 81mg may decrease the risk for recurrence in patients with additional risk factors we recommend that proceed with starting this therapy at 13 weeks. History of delivery 02/04/2023 Overview: x2 Iron deficiency anemia 12/21/2021 Absolute anemia 11/06/2021 Estimated Date of Delivery Comme nts Yes 09/15/2023 Based on Ultraso und documented as of this encounter (statuses as of 09/07/2023) Resolved Problems Problem Noted Date Diagnosed Date Resolved Date Supervision of normal 02/04/2023 02/08/2023 Normal in third trimester 12/22/2021 02/08/2023 Antepartum anemia 11/06/2021 03/04/2023 Overview: hgb 10.7 at 28 weeks, referred to blood mgmt Supervision of other normal 08/05/2021 12/22/2021 Obesity, Class II, BMI 35-39 .9, isolated (see actual BMI) 08/05/2021 03/04/2023 Overview: Early glucola Growth u/s every 4 weeks after 20wk NST weekly starting at 37w History of induced hypertension 08/05/2021 02/08/2023 Overview: PIH listed in chart from last , delivered in [place]. Records in chart do not support this diagnosis. She does report having elevated BP for a short period of time in the past, has not been on any BP meds in "years". BP at [facility] 116/68. Baseline labs and protein/creat ratio obtained at NO History of section complicating 08/05/2021 03/04/2023 Overview: Pushed for 3 hours, then subsequent c/s. Desires repeat C/S. documented as of this encounter (statuses as of 09/07/2023) Immunizations Name Administration Dates Next Due TDAP (age 10 and older)(Boostrix) 12/09/2021 documented as of this encounter Social History Tobacco Use Types Packs/Day Years Used Date Smoking Tobacco: Never Smokeless Tobacco: Never Alcohol Use Standard Drinks/Week Comments Not Currently 0 (1 standard drink = 0.6 oz pur e alcohol) Hunger Vital Sign Answer Date Recorded Within the past 12 months, y ou worried that your food would run out before you got the money to buy more. Never true 08/18/19 24 Within the past 12 months, t he food you bought just didn't last and you didn't have money to get more. Never true 08/18/2023 [place] Depression Scale Answer Date Recorded [place] Depression Scale Total 2 02/04/2023 The thought of harming myself has occurred to me . Never 02/04/2023 Childcare Answer Date Recorded Do you feel overwhelmed with taking care of a child, family member or friend? No 08/18/2023 Does your family need help f inding childcare? (Household - for ages 0-17 years) Not on file 08/18/2023 Clothing Answer Date Recorded Have you been unable to get clothing when it was really needed? No 08/18/2023 Is your family able to get c lothes or diapers when needed? (Household - for ages 0-17 years) Not on file 08/18/2023 Personal Safety Answer Date Recorded Do you feel unsafe or have concerns for your saf ety? No 08/18/2023 Do you have concerns for you r family's safety? (Household - for ages 0-17 years) Not on file 08/18/2023 Utilities Answer Date Recorded Do you have trouble paying y our heating, water, or electric bill? No 08/18/2023 Is your family able to pay t he heat, water, or electric bill? (Household - for ages 0-17 years) Not on file 08/18/2023 Does your family have access to good internet? (Household - for ages 0-17 years) Not on file 08/18/2023 Employment Status Answer Date Recorded Are you unemployed or without regular income? No 08/18/2023 Does the household have a re gular source of income? (Household - for ages 0-17 years) Not on file 08/18/2023 Social Connections Answer Date Recorded How often do you feel lonely or isolated from th ose around you? Never 08/18/2023 Financial Resource Strain Answer Date R ecorded Do you have any trouble payi ng for your medications, or do you think you might in the future? No 08/18/2023 Does your family have troubl e paying for medicine? (Household - for ages 0-17 years) Not on file 08/18/2023 Transportation Needs Answer Date Record ed READ ONLY Do you have troubl e getting a ride to medical visits or work? Never True 08/18/2023 Does your family have a hard time getting a ride to doctors visits? (Household - for ages 0-17 years) Not on file 08/18/2023 Has lack of transportation k ept you from medical appointments, meetings, work, or from getting things needed for daily living? Check all that apply. (Adult - for ages 18 years and over) Not on file 08/18/2023 Do you (or your family) have trouble finding or paying for a ride (transportation)? (Household - for ages 0-17 years) Not on file 08/18/2023 Housing Stability Answer Date Recorded Do you currently live in a s helter or have no steady place to sleep at night? No 08/18/2023 READ ONLY Do you think you a re at risk of becoming homeless? No 08/18/2023 Does your family worry about paying for your home or becoming homeless? (Household - for ages 0-17 years) Not on file 0 08/18/2023 Are you homeless or worried that you might be in the future? (Adult - for ages 18 years and over) Not on file Are you (or your family) frankie eless or worried that you might be in the future? (Household - for ages 0-17 years) Not on file Food Insecurity Answer Date Recorded Do you need food for this week? No 08/18/2023 Are you able to get enough f ood for your family? (Household - for ages 0-17 years) Not on file 08/18/2023 Does your family need food t his week? (Household - for ages 0-17 years) Not on file 08/18/2023 Do you always have enough fo od for your family? (Household - for ages 0-17 years) Not on file 08/18/2023 Estimated Date of Delivery Comme nts Yes 09/15/2023 Based on Ultraso und Sex and Gender Information Value Date Recorded Sex Assigned at Female 08/05/2021 11:08 AM EDT Gender Identity Female 08/05/2021 11:08 AM EDT Sexual Orientation Straight 08/05/2021 11 :08 AM EDT Job Start Date Occupation Industry Not on file Not on file Not on file documented as of this encounter Last Filed Vital Signs Vital Sign Reading Time Taken Comments Blood Pressure 108/72 09/07/2023 1:57 PM EDT Pulse - - Temperature - - Respiratory Rate - - Oxygen Saturation - - Inhaled Oxygen Concentration - - Weight 121.8 kg (268 lb 9.6 oz) 09/07/2023 1:57 PM EDT Height - - Body Mass Index 49.13 08/31/2023 7:50 AM EDT documented in this encounter Progress Notes * Dinorah Haider CRNP - 09/07/2023 2:29 PM EDT 38w6d No concerns. Baby is active. One contraction today. No bleeding or LOF. C/s scheduled for 09/13. ASSESSMENT assessment with Non-stress Test completed on 09/07/2023 at 38.6weeks gestation for indication of obesity heart baseline: 140 bpm Variability: Moderate Decelerations: absent Accelerations: present Contractions: None NST start time: 1344 NST stop time: 1413 NST strip reviewed, interpreted, and approved by OB provider, HEBER Kim . NST strip stored in clinic storage file * Candi Osuna MED ASSIST - 09/07/2023 1:57 PM EDT 38w6d Denies vaginal bleeding/rom + movements States pt had one contraction the other day, lasted less than one minute No new concerns documented in this encounter Miscellaneous Notes * Addendum Note - Candi Osuna MED ASSIST - 09/07/2023 2:40 PM EDTAddended by: CANDI OSUNA on: 09/07/2023 02:40 PM Modules accepted: Orders documented in this encounter Plan of Treatment Upcoming Encounters Date Type Department Care Team (Late st Contact Info) Description 09/21/2023 10:30 AM EDT Office Visit Gynecology/Obstetrics [facility] [address] [place] [address] BackerGladys CRNP [address] [place] [address] Health Maintenance Due Date Last Done Comments Pneumococcal Vaccine: Pediat rics (0 to 5 Years) and At-Risk Patients (6 to 64 Years) (1 of 2 - PCV) 2006 Depression Screening 2012 GARDASIL-HPV IMMUNIZATION SE HO (2 - 2-dose series) 10/21/2013 04/23/2013 Hepatitis B (1 of 3 - 19+ 3- dose series) 2019 COVID-19 Vaccine ( - 2022-2 4 season) 2022 *SPIROMETRY ONCE FOR ASTHMA-ADULT 02/12/2023 Influenza Vaccine (FLU shot) (Season Ended) 2023 03/24/2020, 03/24/2020, 12/19/2018, Additional history exists Gonorrhea / Chlamydia Screen 02/05/2024, 04/16/2022, 08/05/2021 Pap Smear 08/05/2024 08/05/2021 DTaP,Tdap,and Td Vaccines (3 - Td or Tdap) 12/10/2031 12/09/2021, 02/20/2013 MENINGOCOCCAL (MENACTRA/MENVEO) Completed 7, 02/20/2013 documented as of this encounter Medical Devices Not on filedocumented as of this encounter Procedures Procedure Name Priority Date/Time Associated Diagnosis Comments URINALYSIS, POINT OF CARE (ENTER/EDIT) Routine 09/07/2023 History of gestational hypertension High-risk in third trimester documented in this encounter Results * URINALYSIS, POINT OF CARE (ENTER/EDIT) (09/07/2023) Color, Urine Yellow Yellow or Light Yellow Clarity, Urine Clear Clear Glucose, Urine Negative Negative mg/dL Bilirubin, Urine Negative Negative Ketone, Urine Negative Negative mg/dL Specific [place], Urine 1.015 1.003 - 1.030 Blood, Urine Negative Negative pH, Urine 7.0 5.0 - 7.5 units Protein, Urine Negative Negative mg/dL Urobilinogen, Urine 0.2 0.2 - 1.0 mg/dL Nitrite, Urine Negative Negative Esterase, Urine Small Negative Urine 09/07/2023 Dinorah BUCK LAB POINT OF CARE TE ST ENTER/EDIT ORDERABLES documented in this encounter Visit Diagnoses Diagnosis High-risk in third trimester- Primary History of gestational hypertension History of delivery Other postprocedural status Obesity in , antepartum Obesity complicating , childbirth, or the puerperium, antepartum condition or complication Maternal asthma complicating Other current maternal conditions classifiable elsewhere, complicating , childbirth, or the puerperium, unspecified as to episode of care Short interval between pregnancies complicating , antepartum Supervision of other high-risk documented in this encounter Care Teams Insurance Claims Adjuster Relationship Specialty Start Date End Date Shabbir Thompson MD [address] [place] [id number] PCP - General Internal Medicine 07/27/21 documented as of this encounter
--- OUTSIDE RECORDS SUMMARY | 2023-09-14 09:17 | External Medical Summary | Summary of Care ---
Author Name Unknown Organization [facility] Address [address] [place] [address] Phone [phone] Care Team Providers Care Tea Blender Name Role Phone Shabbir Thompson MD Primary Care Provider [phone] Reason for Visit * Reason Comments Return Visit Non Stress Test Encounter Details Date Type Department Care Team (Late st Contact Info) Description 09/07/2023 1:45 PM EDT Office Visit Gynecology/Obstetric s [facility] [address] [facility] [place] [address] Dinorah Haider CRNP [address] [place] [address] [facility]der, Non Stress Tests [place] [address] [place] [address] High-risk in third trimester*; History of gestational [...] in chart from last , delivered in [place]. Records in chart do not support this [...] money to get more. Never true 08/18/2023 [place] Depression Scale Answer Date Recorded [place] Depression Scale Total 2 02/04/2023 The thought [...] Gynecology/Obstetrics [facility]sa [facility] [address] [place] [address] BackerGladys CRNP [address] [place] [address] Health Maintenance Due Date Last Done Comments [...] Negative Ketone, Urine Negative Negative mg/dL Specific [place], Urine 1.015 1.003 - 1.030 Blood, Urine [...] high-risk documented in this encounter Care Teams Tea Blender Relationship Specialty Start Date End Date Shabbir Thompson MD [address] [place] [address] PCP - General Internal Medicine 07/27/21 documented as of this encounter
--- OUTSIDE RECORDS SUMMARY | 2023-09-14 09:17 | External Medical Summary | Summary of Care ---
Author Name Unknown Organization [facility] Address [address] [place] [address] Phone [phone] Care Team Providers Care Tripe Scraper Name Role Phone Shabbir Thompson MD Primary Care Provider [phone] [phone] Reason for Visit * Reason Comments Return Visit Encounter Details Date Type Department Care Team (Late st Contact Info) Description 08/31/2023 7:45 AM EDT Office Visit Gynecology/Obstetric s [facility] [address] [place] [address] Dinorah Haider CRNP [address] [place] [address] [facility], Non Stress Tests [facility] [address] [place] [address] High-risk in third trimester*; History of gestational hypertension; History of delivery; Obesity in , antepartum; Maternal asthma complicating ; Short interval between pregnancies complicating , antepartum Allergies No known active allergiesdocumented as of this encounter (statuses as of 08/31/2023) Medications Medication Sig Dispensed Refills Start Date [...] as of this encounter (statuses as of 08/31/2023) Active Problems Problem Noted Date Diagnosed Date High-risk 03/04/2023 Short interval between pregn ancies complicating , antepartum 03/04/2023 Overview: Last delivery C/S 02/2022 Maternal asthma complicating 3 Overview: Managed with albuterol as needed Reports [...] as of this encounter (statuses as of 08/31/2023) Resolved Problems Problem Noted Date Diagnosed Date [...] in chart from last , delivered in [place]. Records in chart do not support this diagnosis. She does report having elevated BP for a short period of time in the past, has not been on any BP meds in "years". BP at [facility] 116/68. Baseline labs and protein/creat ratio obtained at [facility] History of section complicating 08/05/2021 03/04/2023 Overview: Pushed for 3 hours, then subsequent c/s. Desires repeat C/S. documented as of this encounter (statuses as of 08/31/2023) Immunizations Name Administration Dates Next Due TDAP [...] money to get more. Never true 08/18/2023 [place] Depression Scale Answer Date Recorded [place] Depression Scale Total 2 02/04/2023 The thought of harming myself has occurred to me . Never 02/04/2023 Estimated Date of Delivery Comme nts Yes [...] Sign Reading Time Taken Comments Blood Pressure 118/70 08/31/2023 7:50 AM EDT Pulse - - Temperature - - Respiratory Rate - - Oxygen Saturation - - Inhaled Oxygen Concentration - - Weight 120.7 kg (266 lb) 08/31/2023 7:50 AM EDT Height 157.5 cm (5' 2") 08/31/2023 7:50 AM EDT Body Mass Index 48.65 08/31/2023 7:50 AM EDT documented in this encounter Progress Notes * Dinorah Haider CRNP - 08/31/2023 8:13 AM EDT 37w6d No concerns. Baby is active. Denies contractions, bleeding, LOF. ASSESSMENT assessment with Non-stress Test completed on 08/31/2023 at 37.6weeks gestation for indication of obesity heart baseline: 125 bpm Variability: Moderate Decelerations: absent Accelerations: present Contractions: None NST start time: 0741 NST stop time: 0802 NST strip reviewed, interpreted, and approved by OB provider, HEBER Kim . NST strip stored in clinic storage file documented in this encounter Plan of Treatment Upcoming Encounters Date Type Department Care Team (Late st Contact Info) Description 09/07/2023 1:45 PM EDT Office Visit Gynecology/Obstetrics [facility] [address] [place] [address] Dinorah Haider CRNP [address] [place] [address] Eder, Non Stress Tests [facility] [address] [place] [address] 09/21/2023 10:30 AM EDT Office Visit Gynecology/Obstetrics [facility] [address] [place] [address] BackerGladys CRNP [address] [place] [address] Health Maintenance Due Date Last Done Comments Pneumococcal Vaccine: Pediat rics (0 to 5 Years) and At-Risk Patients (6 to 64 Years) (1 of 2 - PCV) 2006 Depression Screening 2012 GARDASIL-HPV IMMUNIZATION SE HO (2 - 2-dose series) 10/21/2013 04/23/2013 Hepatitis B (1 of 3 - 19+ 3- dose series) 2019 COVID-19 Vaccine (2022-2 4 season) 2022 *SPIROMETRY ONCE FOR ASTHMA-ADULT 02/12/2023 Influenza Vaccine (FLU shot) (Season Ended) 2023 03/24/2020, 03/24/2020, 12/19/2018, Additional history exists Gonorrhea / Chlamydia Screen 02/05/2024, 04/16/2022, 08/05/2021 Pap Smear 08/05/2024 08/05/2021 DTaP,Tdap,and Td Vaccines (3 - Td or Tdap) 12/10/2031 12/09/2021, 02/20/2013 MENINGOCOCCAL (MENACTRA/MENVEO) Completed 7, 02/20/2013 documented as of this encounter Medical Devices Not on filedocumented as of this encounter Visit Diagnoses Diagnosis High-risk in [...] high-risk documented in this encounter Care Teams Tripe Scraper Relationship Specialty Start Date End Date Shabbir Thompson MD [address] [place] [id number] PCP - General Internal Medicine 07/27/21 documented as of this encounter
--- OUTSIDE RECORDS SUMMARY | 2023-09-14 09:18 | External Medical Summary | Summary of Care ---
Author Name Unknown Organization [facility] Address [address] [place] [address] Phone [phone] Care Team Providers Care Handicapper [employer] Name Role Phone Shabbir Thompson MD Primary Care Provider [phone] Reason for Visit * Reason Comments Return Visit Encounter Details Date Type Department Care Team (Late st Contact Info) Description 07/21/2023 2:30 PM EDT Office Visit Gynecology/Obstetric [facility] [address] [facility] [place] [address] Nafisa Vasquez CNM [address] [place] [address] High-risk , third trimester*; History of gestational hypertension; History of delivery; Maternal asthma complicating ; Short interval between pregnancies complicating , antepartum; Class 3 obesity (HCC); Vaginal discharge Allergies No known active allergiesdocumented as of this encounter (statuses as of 07/21/2023) Medications Medication Sig Dispensed Refills Start Date End Date Status Gummies 0.18-25 MG Oral Tablet Chewable Take by mouth . 0 Active Aspirin 81 MG Oral Tablet Delayed Release Take 1 Tablet by mouth in the morning. 0 Active documented as of this encounter (statuses as of 07/21/2023) Active Problems Problem Noted Date Diagnosed Date High-risk 03/04/2023 Short interval between pregn ancies complicating , antepartum 03/04/2023 Overview: Last delivery C/S 02/2022 Maternal asthma complicating 11/22/202 3 Overview: Managed with albuterol as needed [...] deliver by NESHA Last Assessment & Plan: She presents for a anatomy survey secondary to class III obesity. She has a history of asthma, a prior , and history of gestational hypertension. Labs reviewed: -- cffDNA low risk for aneuploidy -- early 1 hour GCT normal We reviewed the results of today's ultrasound. The estimated weight is appropriate for gestational age (measures 6 days ahead). The visualized anatomy is unremarkable in appearance. Some structures are suboptimally imaged secondary to position and poor acoustic windows. The amniotic fluid amount appears normal. We discussed that ultrasound is not able to identify all anomalies, but it is reassuring that no anomalies were seen today. Obesity, Class III, BMI 40-49.9 (morbid obesity) [...] as of this encounter (statuses as of 07/21/2023) Resolved Problems Problem Noted Date Diagnosed Date [...] in chart from last , delivered in [place]. Records in chart do not support this [...] as of this encounter (statuses as of 07/21/2023) Immunizations Name Administration Dates Next Due TDAP [...] the money to buy more. Never true 01/22/20 23 Within the past 12 months, t he food you bought just didn't last and you didn't have money to get more. Never true 01/21/2023 [place] Depression Scale Answer Date Recorded [place] Depression Scale Total 2 02/04/2023 The thought [...] Sign Reading Time Taken Comments Blood Pressure 112/62 07/21/2023 2:10 PM EDT Pulse - - Temperature - - Respiratory Rate - - Oxygen Saturation - - Inhaled Oxygen Concentration - - Weight - - Height - - Body Mass Index - - documented in this encounter Progress Notes * Nafisa Vasquez CNM - 07/21/2023 2:12 PM EDT Holly Hartman is a 23 year old female here for her routine OB appointment at 32w0d Her Estimated Date of Delivery: 09/15/23 REVIEW OF SYSTEMS: She affirms movement. Denies LOF, contractions, N/V, headaches, vision changes, and RUQ pain. Has had pelvic pressure and intermittent cramps for the last week. Does not think she is having contractions. Had an episode of bloody discharge earlier this week. Concerned about mucous plug. This has resolved. PHYSICAL EXAM: Filed Vitals: 07/21/23 1410 BP: 112/62 +FHT 120-130bpm Fundal height: not assessed Pelvic Exam: External genitalia and vagina anatomy within normal limits, tiny cystic vesicular lesion noted posterior to right labia majora, No significant vulvar lesions, small amount of white vaginal discharge, no pooling of fluid, no vaginal bleeding noted, unable to visualize cervix, bimanual exam deferred Spray Foam Installer Documentation Provider requested occupational medicine physician. Name of occupational medicine physician: Rosa Chavez ASSESSMENT/PLAN: (Z87.59) History of gestational hypertension Plan: -BP 112/62 today -Takes 81mg aspirin daily (Z98.891) History of delivery Plan: -Desires repeat with tubal ligation (O99.519, J45.909) Maternal asthma complicating Plan: -Has not needed inhaler since March 2023 (O09.899) Short interval between pregnancies complicating , antepartum (E66.01) Class 3 obesity (HCC) Plan: -Weekly NSTs to start at 34 weeks -Delivery at 39 weeks (O09.93) High-risk , third trimester (primary encounter diagnosis) Plan: -message sent to Silvina Allen to help schedule c/s and tubal ligation -Had MFM ultrasound today; results not yet available -vaginosis swab collected - labor precautions and kick counts reviewed - RTO in 2 weeks Nafisa Vasquez CNM documented in this encounter Nursing Notes * Ivory Gomez RN - 07/21/2023 2:10 PM EDT Patient here for RUDDY 32w0d Having cramping today that is new since last visit Increase in discharge Ivory Gomez RN documented in this encounter Plan of Treatment Upcoming Encounters Date Type Department Care Team (Late st Contact Info) Description 08/04/2023 9:45 AM EDT Office Visit Gynecology/Obstetrics [facility] [address] [place] [address] Dinorah Haider CRNP [address] [place] [address] Eder Non Stress Tests [facility] [address] [place] [address] 08/10/2023 10:00 AM EDT Office Visit Gynecology/Obstetrics [facility] [address] [place] [address] Dinorah Haider CRNP [address] [place] [address] Eder Non Stress Tests [facility] [address] [place] [address] 08/18/2023 1:00 PM EDT Office Visit Gynecology/Obstetrics [facility] [address] [place] [address] Gladys Virk CRNP [address] [place] [address] Eder Non Stress Tests [facility] [address] [place] [address] 08/24/2023 2:30 PM EDT Office Visit Gynecology/Obstetrics [facility] [address] [place] [address] Dinorah Haider CRNP [address] [place] [address] Eder Non Stress Tests [facility] [address] [place] [address] 08/25/2023 1:45 PM EDT Imaging Maternal Medicine Imaging, [facility] G[facility] [address] [place] [phone] 08/31/2023 2:30 PM EDT Office Visit Gynecology/Obstetrics [facility] [address] [place] [address] Dinorah Haider CRNP [address] [place], [place] [address] Eder, Non Stress Tests [facility] [address] [place] [address] 09/07/2023 1:45 PM EDT Office Visit Gynecology/Obstetrics [facility] [address] [place] [address] Dinorah Haider CRNP [address] [place] [address] Eder, Non Stress Tests [facility] [address] [place] [address] Pending Results Name Type Priority Associated Diagnoses Date /Time VAGINOSIS PANEL, PCR Lab Routine Vaginal discharge 07/21/2023 2:43 PM EDT Scheduled Orders Name Type Priority Associated Diagnoses Orde r Schedule VAGINOSIS PANEL, PCR Lab Routine Vaginal discharge Expected: 07/21/2023, Expires: 07/20/2024 Health Maintenance Due Date Last Done Comments [...] of this encounter Visit Diagnoses Diagnosis High-risk , third trimester- Primary History of gestational hypertension History of delivery Other postprocedural status Maternal asthma complicating Other current maternal conditions classifiable elsewhere, complicating , childbirth, or the puerperium, unspecified as to episode of care Short interval between pregnancies complicating , antepartum Supervision of other high-risk Class 3 obesity (HCC) Vaginal discharge Leukorrhea, not specified as infective documented in this encounter Care Teams Handicapper Harness Racing Relationship Specialty Start Date End Date Shabbir Thompson MD [address] [place] [address] PCP - General Internal Medicine 07/27/21 documented as of this encounter
--- OUTSIDE RECORDS SUMMARY | 2023-09-14 09:18 | External Medical Summary | Summary of Care ---
Author Name Unknown Organization [facility] Address [address] [place] [address] Phone [phone] Care Team Providers Care Project Account Manager Name Role Phone Shabbir Thompson MD Primary Care Provider [phone] Encounter Details Date Type Department Care Team (Late st Contact Info) Description 07/21/2023 1:45 PM EDT Office Visit [facility], [address] [address] Joellen Marks, DO [address] [place], [place] [id number] Obesity in , antepartum*; Ultrasound for screening for growth restriction; 32 weeks gestation of Allergies No known active allergiesdocumented as of this encounter (statuses as of 07/22/2023) Medications Medication Sig Dispensed Refills Start Date End Date Status Gummies 0.18-25 MG Oral Tablet Chewable Take by mouth . 0 Active Aspirin 81 MG Oral Tablet Delayed Release Take 1 Tablet by mouth in the morning. 0 Active documented as of this encounter (statuses as of 07/22/2023) Active Problems Problem Noted Date Diagnosed Date [...] as of this encounter (statuses as of 07/22/2023) Resolved Problems Problem Noted Date Diagnosed Date [...] in chart from last , delivered in [place]. Records in chart do not support this [...] as of this encounter (statuses as of 07/22/2023) Immunizations Name Administration Dates Next Due TDAP [...] money to get more. Never true 01/21/2023 [place] Depression Scale Answer Date Recorded [place] Depression Scale Total 2 02/04/2023 The thought [...] on file documented as of this encounter Progress Notes * Joellen Marks, - 07/22/2023 10:59 AM EDT Holly presented today at 32w1d for an ultrasound for the following indications: Obesity in , antepartum Ultrasound for screening for growth restriction 32 weeks gestation of Ultrasound summary: Patient presented at 32w 0d for growth assessment. Normal growth with EFW 2186 g at 82%ile. Normal SALENA at 14.3 cm. Cephalic presentation. I reviewed the ultrasound images. Holly was given the opportunity to meet with me if she had any questions. Please refer to the ultrasound report for additional details about today's ultrasound examination. RECOMMENDATIONS: Recommend follow up ultrasound with MFM in 4-6 weeks for growth secondary to above indications. See prior formal MFM consultation note. Thank you for allowing us to participate in the care of this patient. Please call with any questions. Joellen Marks DO 07/22/2023 10:59 AM documented in this encounter Plan of Treatment Upcoming Encounters Date Type Department Care Team (Late st Contact Info) Description 08/04/2023 9:45 AM EDT Office Visit Gynecology/Obstetrics [facility] [address] [place] [address] Dinorah Haider CRNP [address] [place] [address] Eder Non Stress Tests [facility] [address] [place] [address] 08/10/2023 10:00 AM EDT Office Visit Gynecology/Obstetrics [facility] [address] [place] [address] Dinorah Haider CRNP [address] [place] [address] Eder Non Stress Tests [facility] [address] [place] [address] 08/18/2023 1:00 PM EDT Office Visit Gynecology/Obstetrics [facility] [address] [place] [address] Gladys Virk CRNP [address] [place] [address] Eder Non Stress Tests [facility] [address] [place] [address] 08/24/2023 2:30 PM EDT Office Visit Gynecology/Obstetrics [facility] [address] [place] [address] Dinorah Haider CRNP [address] [place], [place] [address] Eder, Non Stress Tests [place] [address] 08/25/2023 1:45 PM EDT Imaging Maternal Medicine Imaging, [place] [address] [place] [phone] 08/31/2023 2:30 PM EDT Office Visit Gynecology/Obstetrics [facility] [address] [place], [place] [address] Dinorah Haider CRNP [address] [place], [place] [address] Eder Non Stress Tests [place] [place] [address] 09/07/2023 1:45 PM EDT Office Visit Gynecology/Obstetrics [facility] [address] [place] [address] Dinorah Haider CRNP [address] [place] [address] Eder Non Stress Tests [facility] [place] [address] Health Maintenance Due Date Last Done Comments [...] as of this encounter Visit Diagnoses Diagnosis Obesity in , antepartum- Primary Obesity complicating , childbirth, or the puerperium, antepartum condition or complication Ultrasound for screening for growth restriction screening for growth retardation using ultrasonics 32 weeks gestation of state, incidental documented in this encounter Care Teams Project Account Manager Relationship Specialty Start Date End Date Shabbir Thompson MD [address] [place] [address] PCP - General Internal Medicine 07/27/21 documented as of this encounter
--- OUTSIDE RECORDS SUMMARY | 2023-09-14 09:18 | External Medical Summary | Summary of Care ---
Author Name Unknown Organization [facility] Address [address] [facility] [place] [address] Phone [phone] Care Team Providers Care Can Inspector Name Role Phone Shabbir Thompson MD Primary Care Provider [phone] Reason for Visit * Reason Comments Blood Pressure Check Encounter Details Date Type Department Care Team (Late st Contact Info) Description 08/17/2023 10:00 AM EDT Nurse Only Gynecology/Obstetrics [facility] [address] [facility] [place] [address] Gw, Nurse Obgyn Injection [address] [facility] [place] [address] Blood Pressure Check Allergies No known active allergiesdocumented as of this encounter (statuses as of 08/17/2023) Medications Medication Sig Dispensed Refills Start Date [...] as of this encounter (statuses as of 08/17/2023) Active Problems Problem Noted Date Diagnosed Date [...] as of this encounter (statuses as of 08/17/2023) Resolved Problems Problem Noted Date Diagnosed Date [...] in chart from last , delivered in [place]. Records in chart do not support this [...] as of this encounter (statuses as of 08/17/2023) Immunizations Name Administration Dates Next Due TDAP [...] money to get more. Never true 01/21/2023 [place] Depression Scale Answer Date Recorded [place] Depression Scale Total 2 02/04/2023 The thought [...] Sign Reading Time Taken Comments Blood Pressure 106/62 08/17/2023 10:17 AM EDT Pulse - - Temperature - - Respiratory Rate - - Oxygen Saturation - - Inhaled Oxygen Concentration - - Weight - - Height - - Body Mass Index - - documented in this encounter Nursing Notes * Brittney Mendiola LPN - 08/17/2023 10:24 AM EDT Pt here today for BP check Was concerned with upper left sided pain. States she notices this when she wakes up- goes away after a few minutes Pt states urine has been cloudy. Urine dip in office today. + movement Some HICKS- tylenol helps- no vision changes BP today 106/62. Advised pt to call office with new or worsening of symptoms. documented in this encounter Plan of Treatment Upcoming Encounters Date Type Department Care Team (Late st Contact Info) Description 08/19/2023 11:15 AM EDT Office Visit Gynecology/Obstetrics [facility] [address] [place] [address] Frank Paniagua MD [address] [place] [address] [facility], Non Stress Tests [facility] [address] [place] [address] 08/24/2023 2:30 PM EDT Office Visit Gynecology/Obstetrics [facility] [address] [place] [address] Dinorah Haider CRNP [address] [place] [address] [facility]aines, Non Stress Tests [facility] [address] [place] [address] 08/25/2023 1:45 PM EDT Imaging Maternal Medicine Imaging, [facility] G[facility] [address] [place] [address] 08/31/2023 2:30 PM EDT Office Visit Gynecology/Obstetrics [facility] [address] [place] [address] Dinorah Haider CRNP [address] [place] [address] Gaines, Non Stress Tests [facility] [address] [place] [address] 09/07/2023 1:45 PM EDT Office Visit Gynecology/Obstetrics [facility] [address] [place] [address] Dinorah Haider CRNP [address] [place] [address] Eder, Non Stress Tests [facility] [address] [place] [address] 09/21/2023 10:30 AM EDT Office Visit Gynecology/Obstetrics [facility] [address] [place] [address] Gladys Virk CRNP [address] [place] [address] Pending Results Name Type Priority Associated Diagnoses Date /Time CULTURE, URINE, QUANTITATIVE Lab Routine Dysuria during 08/17/2023 10:30 AM EDT Health Maintenance Due Date Last Done Comments [...] Comments URINALYSIS, POINT OF CARE (ENTER/EDIT) Routine 08/17/2023 BP check documented in this encounter Results * URINALYSIS, POINT OF CARE (ENTER/EDIT) (08/17/2023) Color, Urine Dark Yellow Yellow or Light Yellow Clarity, Urine Clear Clear Glucose, Urine Negative Negative mg/dL Bilirubin, Urine Negative Negative Ketone, Urine Negative Negative mg/dL Specific [place], Urine 1.020 1.003 - 1.030 Blood, Urine Trace-intact Negative pH, Urine 7.0 5.0 - 7.5 units Protein, Urine Negative Negative mg/dL Urobilinogen, Urine 0.2 0.2 - 1.0 mg/dL Nitrite, Urine Negative Negative Esterase, Urine Trace Negative Urine 08/17/2023 Frank Paniagua MD LAB POINT OF CARE TE ST ENTER/EDIT ORDERABLES documented in this encounter Visit Diagnoses Diagnosis BP check- Primary Screening for hypertension Dysuria during documented in this encounter Care Teams Can Inspector Relationship Specialty Start Date End Date Shabbir Thompson MD [address] [place] [address] PCP - General Internal Medicine 07/27/21 documented as of this encounter
--- OUTSIDE RECORDS SUMMARY | 2023-09-14 09:18 | External Medical Summary | Summary of Care ---
Author Name Unknown Organization [facility] Address [address] [place] [address] Phone [phone] Care Team Providers Care Assistant Commissioner Name Role Phone Shabbir Thompson MD Primary Care Provider [phone] Reason for Visit * Reason Comments Return Visit Non Stress Test Encounter Details Date Type Department Care Team (Late st Contact Info) Description 08/04/2023 9:45 AM EDT Office Visit Gynecology/Obstetric s [facility] [address] [place] [address] Dinorah Haider CRNP [address] [place] [address] [facility]aines, Non Stress Tests [facility] [address] [place] [address] High-risk in third trimester*; History of gestational hypertension; History of delivery; Obesity in , antepartum; Maternal asthma complicating ; Short interval between pregnancies complicating , antepartum Allergies No known active allergiesdocumented as of this encounter (statuses as of 08/04/2023) Medications Medication Sig Dispensed Refills Start Date End Date Status Gummies 0.18-25 MG Oral Tablet Chewable Take by mouth . 0 Acti ve Aspirin 81 MG Oral Tablet Delayed Release Take 1 Tablet by mouth in the morning. 0 Active metroNIDAZOLE 500 MG Oral Tablet (Flagyl) Take 1 Tablet by mouth in the morning and 1 Tablet before bedtime. X 7 days until gone.. 14 Tablet 0 07/22/2023 Active documented as of this encounter (statuses as of 08/04/2023) Active Problems Problem Noted Date Diagnosed Date [...] as of this encounter (statuses as of 08/04/2023) Resolved Problems Problem Noted Date Diagnosed Date [...] in chart from last , delivered in [place]. Records in chart do not support this [...] as of this encounter (statuses as of 08/04/2023) Immunizations Name Administration Dates Next Due TDAP [...] money to get more. Never true 01/21/2023 [place] Depression Scale Answer Date Recorded [place] Depression Scale Total 2 02/04/2023 The thought [...] Sign Reading Time Taken Comments Blood Pressure 114/68 08/04/2023 9:31 AM EDT Pulse - - Temperature - - Respiratory Rate - - Oxygen Saturation - - Inhaled Oxygen Concentration - - Weight 119.1 kg (262 lb 9.6 oz) 08/04/2023 9:31 AM EDT Height - - Body Mass Index 48.03 07/06/2023 2:38 PM EDT documented in this encounter Progress Notes * Dinorah Haider CRNP - 08/04/2023 10:13 AM EDT 34w Only concern is needing date for repeat c/s. Message sent again to Silvina to schedule. Baby is active. No contractions or bleeding. Feeling a lot of pressure. ASSESSMENT assessment with Non-stress Test completed on 08/04/2023 at 34weeks gestation for indication ofobesity heart baseline: 140 bpm Variability: Moderate Decelerations: absent Accelerations: present Contractions: None NST start time: 922 NST stop time: 956 NST strip reviewed, interpreted, and approved by OB providerDinorah CRNP . NST strip stored in clinic storage file * Brittney Mendiola LPN - 08/04/2023 9:31 AM EDT 34w0d Denies vaginal bleeding/rom + movement Has been feeling pressure/cramping documented in this encounter Plan of Treatment Upcoming Encounters Date Type Department Care Team (Late st Contact Info) Description 08/10/2023 10:00 AM EDT Office Visit Gynecology/Obstetrics [facility] [address] [place] [address] Dinorah Haider CRNP [address] [place] [address] Megan Gaines Stress Tests [facility] [address] [place] [address] 08/18/2023 1:00 PM EDT Office Visit Gynecology/Obstetrics [facility] [address] [place] [address] [place], HEBER Schultz [address] [place], [place] [address] Gaines, Non Stress Tests [facility] [address] [place] [address] 08/24/2023 2:30 PM EDT Office Visit Gynecology/Obstetrics [facility] [address] [place] [address] Dinorah Haider CRNP [address] [place] [address] Gaines, Non Stress Tests [facility] [address] [place] [address] 08/25/2023 1:45 PM EDT Imaging Maternal Medicine Imaging, [facility] Gaines [address] [place] [phone] 08/31/2023 2:30 PM EDT Office Visit Gynecology/Obstetrics [facility] [address] [place] [address] Dinorah Haider CRNP [address] [place] [address] Eder, Non Stress Tests [facility] [address] [place] [address] 09/07/2023 1:45 PM EDT Office Visit Gynecology/Obstetrics [facility] [address] [place] [address] Dinorah Haider CRNP [address] [place] [address] Eder, Non Stress Tests [facility] [address] [place] [address] Health Maintenance Due Date Last Done Comments Pneumococcal Vaccine: Pediat rics (0 to 5 Years) and At-Risk Patients (6 to 64 Years) (1 of 2 - PCV) 2006 Depression Screening 2012 GARDASIL-HPV IMMUNIZATION SE HO (2 - 2-dose series) 10/21/2013 04/23/2013 Hepatitis B (1 of 3 - 19+ 3- dose series) 2019 COVID-19 Vaccine (1 - 2022-2 4 season) 2022 *SPIROMETRY ONCE [...] high-risk documented in this encounter Care Teams Assistant Commissioner Relationship Specialty Start Date End Date Shabbir Thompson MD [address] [place] [address] PCP - General Internal Medicine 07/27/21 documented as of this encounter
--- OUTSIDE RECORDS SUMMARY | 2023-09-14 09:18 | External Medical Summary | Summary of Care ---
Author Name Unknown Organization [facility] Address [address] [place] [address] Phone [phone] Care Team Providers Care Marketing Performance Analyst Name Role Phone Shabbir Thompson MD Primary Care Provider [phone] [phone] Encounter Details Date Type Department Care Team (Late st Contact Info) Description 08/25/2023 1:45 PM EDT Office Visit Associate Loan Officer Obstetrics Maternal Medicine[address] [address] Raulito العلي MD [address] [place] [address] Maternal asthma complicating *; Obesity in , antepartum; Obesity, Class III, BMI 40-49.9 (morbid obesity) (HCC) Allergies No known active allergiesdocumented as of this encounter (statuses as of 08/26/2023) Medications Medication Sig Dispensed Refills Start Date [...] as of this encounter (statuses as of 08/26/2023) Active Problems Problem Noted Date Diagnosed Date [...] as of this encounter (statuses as of 08/26/2023) Resolved Problems Problem Noted Date Diagnosed Date [...] in chart from last , delivered in [place]. Records in chart do not support this [...] as of this encounter (statuses as of 08/26/2023) Immunizations Name Administration Dates Next Due TDAP [...] money to get more. Never true 08/18/2023 [place] Depression Scale Answer Date Recorded [place] Depression Scale Total 2 02/04/2023 The thought [...] as of this encounter Progress Notes * Raulito العلي MD - 08/26/2023 12:57 PM EDT MATERNAL MEDICINE VISIT Holly Hartman is at 37w1d who presents to [facility] for an ultrasound and follow-up of her high risk . The patient is currently 37 weeks 1 day gestation with class 3 obesity. She comes in for an evaluation of growth. She is being seen today by Maternal- Medicine for the following reasons: Problem List Items Addressed This Visit Obesity, Class III, BMI 40-49.9 (morbid obesity) (HCC) (Chronic) Obesity in , antepartum I reviewed the ultrasound. The overall estimated weight is consistent with the 70th percentile for the gestational age and the anatomy that was visualized appears unremarkable. The fetus is in the vertex presentation and the amniotic fluid volume is normal at 19 cm. As the patient is currently 37 weeks of gestation, there is no clinical indication for return at this time. Maternal asthma complicating - Primary Thank you for allowing us to participate in the care of this patient. Please call with any questions. Raulito العلي MD 08/26/2023 12:57 PM documented in this encounter Miscellaneous Notes * Assessment & Plan Note - Raulito العلي MD - 08/26/2023 12:59 PM EDT Associated Problem(s): Obesity in , antepartum I reviewed the ultrasound. The overall estimated weight is consistent with the 70th percentile for the gestational age and the anatomy that was visualized appears unremarkable. The fetus is in the vertex presentation and the amniotic fluid volume is normal at 19 cm. As the patient is currently 37 weeks of gestation, there is no clinical indication for return at this time. documented in this encounter Plan of Treatment Upcoming Encounters Date Type Department Care Team (Late st Contact Info) Description 08/31/2023 7:45 AM EDT Office Visit Gynecology/Obstetrics Lyssa Gaines [address] [place] [address] Dinorah Haider CRNP [address] [place] [address] Eder, Non Stress Tests [place] [address] [place] [address] 09/07/2023 1:45 PM EDT Office Visit Gynecology/Obstetrics Lyssa Gaines [address] [place] [address] Dinorah Haider CRNP [address] [place] [address] Eder, Non Stress Tests [place] [address] [place] [address] 09/21/2023 10:30 AM EDT Office Visit Gynecology/Obstetrics Lyssa Gaines [address] [place] [address] Gladys Virk CRNP [address] [place] [address] Health Maintenance Due Date Last Done Comments [...] as of this encounter Visit Diagnoses Diagnosis Maternal asthma complicating - Primary Other current maternal conditions classifiable elsewhere, complicating , childbirth, or the puerperium, unspecified as to episode of care Obesity in , antepartum Obesity complicating , childbirth, or the puerperium, antepartum condition or complication Obesity, Class III, BMI 40-49.9 (morbid obesity) (HCC) Morbid obesity documented in this encounter Care Teams Marketing Performance Analyst Relationship Specialty Start Date End Date Shabbir Thompson MD [address] [place] [address] [place] [address] PCP - General Internal Medicine 07/27/21 documented as of this encounter
--- OUTSIDE RECORDS SUMMARY | 2023-09-14 09:18 | External Medical Summary | Summary of Care ---
Author Name Unknown Organization [facility] Address [address] [place] [address] Phone [phone] Care Team Providers Care Equipment Maintenance Superintendent Name Role Phone Shabbir Thompson MD Primary Care Provider [phone] [phone] Reason for Visit * Reason Onset Date Comments Advice 08/08/[address] Gómez in Encounter Details Date Type Department Care Team (Late st Contact Info) Description 08/08/2023 Telephone Gynecology/Obstetrics [facility] [address] [place] [address] Shawn Easton MD [address] [place] [address] Advice (Rev with Dr. Zamora) Allergies No known active allergiesdocumented as of this encounter (statuses as of 08/08/2023) Medications Medication Sig Dispensed Refills Start Date [...] as of this encounter (statuses as of 08/08/2023) Active Problems Problem Noted Date Diagnosed Date [...] as of this encounter (statuses as of 08/08/2023) Resolved Problems Problem Noted Date Diagnosed Date [...] in chart from last , delivered in [place]. Records in chart do not support this diagnosis. She does report having elevated BP for a short period of time in the past, has not been on any BP meds in "years". BP at [facility] 116/68. Baseline labs and protein/creat ratio obtained at [facility] History of section complicating 08/05/2021 03/04/2023 Overview: Pushed for 3 hours, then subsequent c/s. Desires repeat C/S. documented as of this encounter (statuses as of 08/08/2023) Immunizations Name Administration Dates Next Due TDAP [...] money to get more. Never true 01/21/2023 [place] Depression Scale Answer Date Recorded [place] Depression Scale Total 2 02/04/2023 The thought [...] on file documented as of this encounter Miscellaneous Notes * Telephone Encounter - Maryellen Jefferson RN - 08/08/2023 10:36 AM EDT Pt is aware. * Telephone Encounter - Shawn Easton MD - 08/08/2023 9:33 AM EDT It is common to have burning or numbness around Csection incision scars Recommend to monitor. If she has contractions , LOF, VB then she should call back Thanks * Telephone Encounter - Maryellen Jefferson RN - 08/08/2023 8:40 AM EDT Pt started on Tuesday with pain around her scar. She describes it as a burning feeling in her stomach where the prior incision is. She has this just with movements. Does not occur with rest.Denies any bleeding. Denies her belly tightening. + FM. Will review with Dr. Zamora. documented in this encounter Plan of Treatment Upcoming Encounters Date Type Department Care Team (Late st Contact Info) Description 08/10/2023 10:00 AM EDT Office Visit Gynecology/Obstetrics Lyssa Gaines [address] [place] [address] Dinorah Haider CRNP [address] [place] [address] Gaines, Non Stress Tests [facility] [address] [place] [address] 08/19/2023 11:15 AM EDT Office Visit Gynecology/Obstetrics Lyssa Gaines [address] [place] [address] Frank Paniagua MD [address] [place] [address] Gaines, Non Stress Tests [facility] [address] [place] [address] 08/24/2023 2:30 PM EDT Office Visit Gynecology/Obstetrics Lyssa Gaines [address] [place] [address] iDnorah Haider CRNP [address] [place] [address] Gaines Non Stress Tests L[place]to [place] [address] 08/25/2023 1:45 PM EDT Imaging Maternal Medicine [facility] [address] [place] [address] 08/31/2023 2:30 PM EDT Office Visit Gynecology/Obstetrics Lyssa Gaines [address] [place] [address] Dinorah Haider CRNP [address] [place] [address] Eder Non Stress Tests Loreto [place] [address] 09/07/2023 1:45 PM EDT Office Visit Gynecology/Obstetrics Lyssa Gaines [address] [place] [address] Dinorah Haider CRNP [address] [place] [address] Gaines Non Stress Tests Loreto [place] [address] 09/21/2023 10:30 AM EDT Office Visit Gynecology/Obstetrics Lyssa Gaines [address] [place] [address] Backer, HEBER Schultz [address] [place] [address] Health Maintenance Due Date Last Done Comments [...] Not on filedocumented as of this encounter Care Teams Equipment Maintenance Superintendent Relationship Specialty Start Date End Date Shabbir Thompson MD [address] [place] [address] PCP - General Internal Medicine 07/27/21 documented as of this encounter
--- OUTSIDE RECORDS SUMMARY | 2023-09-14 09:18 | External Medical Summary | Summary of Care ---
Author Name Unknown Organization [facility] Address [address] [facility] [place] [address] Phone [phone] Care Team Providers Care Steam Plant Control Room Operator Name Role Phone Shabbir Thompson MD Primary Care Provider [phone] [phone] Reason for Visit * Reason Comments Return Visit Non Stress Test Pre-Op Testing Encounter Details Date Type Department Care Team (Late st Contact Info) Description 08/19/2023 11:15 AM EDT Office Visit Gynecology/Obstetric s Lyssa Gaines [address] [place] [address] Frank Paniagua MD [address] [place] [address] Eder Non Stress Tests [place] [address] [employer] [place] [address] History of gestational hypertension*; History of delivery; Obesity in , antepartum; Maternal asthma complicating ; High-risk in third trimester; Short interval between pregnancies complicating , antepartum Allergies No known active allergiesdocumented as of this encounter (statuses as of 08/19/2023) Medications Medication Sig Dispensed Refills Start Date [...] as of this encounter (statuses as of 08/19/2023) Active Problems Problem Noted Date Diagnosed Date [...] as of this encounter (statuses as of 08/19/2023) Resolved Problems Problem Noted Date Diagnosed Date [...] in chart from last , delivered in [place]. Records in chart do not support this [...] as of this encounter (statuses as of 08/19/2023) Immunizations Name Administration Dates Next Due TDAP [...] money to get more. Never true 08/18/2023 [place] Depression Scale Answer Date Recorded [place] Depression Scale Total 2 02/04/2023 The thought [...] Sign Reading Time Taken Comments Blood Pressure 100/62 08/19/2023 11:20 AM EDT Pulse - - Temperature - - Respiratory Rate - - Oxygen Saturation - - Inhaled Oxygen Concentration - - Weight 118.8 kg (262 lb) 08/19/2023 11:20 AM EDT Height 157.5 cm (5' 2") 08/19/2023 11:20 AM EDT Body Mass Index 47.92 08/19/2023 11:20 AM EDT documented in this encounter Progress Notes * Frank Paniagua MD - 08/19/2023 1:18 PM EDT Pt not seen today NST reviewed ASSESSMENT assessment with Non-stress Test completed on 08/19/2023 at 36 weeks gestation for indication of obesity heart baseline: 130 bpm Variability: Moderate Decelerations: absent Accelerations: present Contractions: None NST start time: 11;30 NST stop time: 12:07 NST strip reviewed, interpreted, and approved by OB provider, eduardo. NST strip stored in clinic storage file 130 documented in this encounter Nursing Notes * Astrid Copeland LPN - 08/19/2023 11:39 AM EDT Nst, RUDDY, pre-op GBS today documented in this encounter Plan of Treatment Upcoming Encounters Date Type Department Care Team (Late st Contact Info) Description 08/25/2023 1:45 PM EDT Imaging Maternal Medicine Imaging, Loreto Gaines [address] [place] [phone] 08/25/2023 3:00 PM EDT Office Visit Gynecology/Obstetrics Lyssa Gaines [address] [place] [address] Frank Paniagua MD [address] [place] [address] Megan Gaines Stress Tests [facility] [address] [place] [address] 08/31/2023 7:45 AM EDT Office Visit Gynecology/Obstetrics Lyssa Gaines [address] [place] [address] Dinorah Haider CRNP [address] [place], [place] [address] Gaines, Non Stress Tests [place] [address] [place] [address] 09/07/2023 1:45 PM EDT Office Visit Gynecology/Obstetrics Lyssa Gaines [address] [place] [address] Dinorah Haider CRNP [address] [place], [place] [address] Eder Non Stress Tests [place]to [address] [place] [address] 09/21/2023 10:30 AM EDT Office Visit Gynecology/Obstetrics Lyssa Gaines [address] [place] [address] BackerGladys CRNP [address] [place] [address] Health Maintenance Due Date Last Done Comments [...] as of this encounter Visit Diagnoses Diagnosis History of gestational hypertension- Primary History of delivery Other postprocedural status Obesity in , antepartum Obesity complicating , childbirth, or the puerperium, antepartum condition or complication Maternal asthma complicating Other current maternal conditions classifiable elsewhere, complicating , childbirth, or the puerperium, unspecified as to episode of care High-risk in third trimester Short interval between pregnancies complicating , antepartum Supervision of other high-risk documented in this encounter Care Teams Steam Plant Control Room Operator Relationship Specialty Start Date End Date Shabbir Thompson MD [address] [place] [address] PCP - General Internal Medicine 07/27/21 documented as of this encounter
--- OUTSIDE RECORDS SUMMARY | 2023-09-14 09:18 | External Medical Summary ---
Author Name Unknown Address Unknown Organization K01:[facility] [address] [place] [address] Laboratory Report Ordering Provider Test Date Status TESHA RIVERAU 08/25/2023 11:57:25 Final Observation Date Value Abnormality Reference (Units ) Status Streptococcus agalactiae DNA [Presence] in Specimen by ARGELIA with probe detection 08/25/2023 11:57:25 Negative Negative Final No Group B Streptococcus det ected by culture-enhanced PCR (amplified probe). GBS GBSCT - [facility] 08/25/2023 11:57:25 0.0 Final GBS SPCCT - [facility] 08/25/2023 11:57:25 31.2 Final Performing Location [facility] [place] [facility] [address] [place] [address]
--- OUTSIDE RECORDS SUMMARY | 2023-09-14 09:18 | External Medical Summary | Summary of Care ---
Author Name Unknown Organization [facility] Address [address] [facility] [address] Phone [phone] Care Team Providers Care Sales Representative Aircraft Name Role Phone Shabbir Thompson MD Primary Care Provider [phone] [phone] Encounter Details Date Type Department Care Team (Late st Contact Info) Description 08/17/2023 Telephone Gynecology/Obstetrics [facility] [address] [place] [address] Trace Mariee MD [address] [place] [address] Allergies No known active allergiesdocumented as of [...] in chart from last , delivered in [place]. Records in chart do not support this [...] money to get more. Never true 01/21/2023 [place] Depression Scale Answer Date Recorded [place] Depression Scale Total 2 02/04/2023 The thought [...] encounter Miscellaneous Notes * Telephone Encounter - Ivory Gomez RN - 08/17/2023 8:16 AM EDT Patient calling in 35w6d C/o R sided pain x 3 days after waking up, goes away once she is up moving around. Not constant or severe. C/o urinary frequency/burning with urination and cloudy urine that started yesterday/last night Reports + FM No vaginal bleeding/leaking, contractions. Denies HICKS/blurry vision. No available RUDDY appts today. Added to nurse schedule for BP check / urine dip this morning. Advised to call back with changes. documented in this encounter Plan of Treatment Upcoming Encounters Date Type Department Care Team (Late st Contact Info) Description 08/17/2023 10:00 AM EDT Nurse Only Gynecology/Obstetrics Lyssa Gaines [address] [place] [address] Gw, Nurse Obgyn Injection [address] [place] [address] 08/19/2023 11:15 AM EDT Office Visit Gynecology/Obstetrics Lyssa Gaines [address] [place] [address] Frank Paniagua MD [address] [place] [address] Eder Non Stress Tests [place] [address] 08/24/2023 2:30 PM EDT Office Visit Gynecology/Obstetrics Lyssa Gaines [address] [place] [address] Dinorah Haider CRNP [address] [place] [address] Eder, Non Stress Tests Loreto [address] [address] 08/25/2023 1:45 PM EDT Imaging Maternal Medicine Imaging, Loreto Gaines [address] [place] [address] 08/31/2023 2:30 PM EDT Office Visit Gynecology/Obstetrics Lyssa Gaines [address] [place] [address] Dinorah Haider CRNP [address] [place] [address] Eder, Non Stress Tests Loreto [address] [address] 09/07/2023 1:45 PM EDT Office Visit Gynecology/Obstetrics Lyssa Gaines [address] [place] [address] Dinorah Haider CRNP [address] [place] [address] Gaines, Non Stress Tests [place]to [address] [place] [address] 09/21/2023 10:30 AM EDT Office Visit Gynecology/Obstetrics Lyssa Gaines [address] [place] [address] Gladys Virk CRNP [address] [place] [address] Health Maintenance Due Date Last Done Comments [...] filedocumented as of this encounter Care Teams Sales Representative Aircraft Relationship Specialty Start Date End Date Shabbir Thompson MD [address] [place] [address] PCP - General Internal Medicine 07/27/21 documented as of this encounter
--- OUTSIDE RECORDS SUMMARY | 2023-09-14 09:18 | External Medical Summary | Summary of Care ---
Author Name Unknown Organization [facility] Address [address] [place] [address] Phone [phone] Care Team Providers Care Fish Bailer Name Role Phone Shabbir Thompson MD Primary Care Provider +1 [phone] Reason for Visit * Reason Comments Non Stress Test Class 3 Return Visit 34w6d Encounter Details Date Type Department Care Team (Late st Contact Info) Description 08/10/2023 10:00 AM EDT Office Visit Gynecology/Obstetric s [facility] [address] [place] [address] Dinorah Haider CRNP [address] [place] [address] Gaines, Non Stress Tests [place] [address] [place] [address] High-risk in third trimester*; History of gestational hypertension; History of delivery; Obesity in , antepartum; Maternal asthma complicating ; Short interval between pregnancies complicating , antepartum Allergies No known active allergiesdocumented as of this encounter (statuses as of 08/10/2023) Medications Medication Sig Dispensed Refills Start Date [...] as of this encounter (statuses as of 08/10/2023) Active Problems Problem Noted Date Diagnosed Date [...] as of this encounter (statuses as of 08/10/2023) Resolved Problems Problem Noted Date Diagnosed Date [...] in chart from last , delivered in [place]. Records in chart do not support this [...] as of this encounter (statuses as of 08/10/2023) Immunizations Name Administration Dates Next Due TDAP (age 10 and older)(Boostrix) 12/09/2021 documented as of this encounter Social History Tobacco Use Types Packs/Day Years Used Date Smoking Tobacco: Never Smokeless Tobacco: Never Tobacco Cessation:Counseling Given: Not Answered Alcohol Use Standard Drinks/Week Comments Not Currently [...] money to get more. Never true 01/21/2023 [place] Depression Scale Answer Date Recorded [place] Depression Scale Total 2 02/04/2023 The thought [...] Sign Reading Time Taken Comments Blood Pressure 112/60 08/10/2023 10:08 AM EDT Pulse - - Temperature - - Respiratory Rate - - Oxygen Saturation - - Inhaled Oxygen Concentration - - Weight 119 kg (262 lb 6.4 oz) 08/10/2023 10:08 A M EDT Height 157.5 cm (5' 2") 08/10/2023 10:08 AM EDT Body Mass Index 47.99 08/10/2023 10:08 AM EDT documented in this encounter Progress Notes * Dinorah Haider CRNP - 08/10/2023 10:32 AM EDT ASSESSMENT assessment with Non-stress Test completed on 08/10/2023 at 34.6weeks gestation for indication of obesity heart baseline: 130 bpm Variability: Moderate Decelerations: absent Accelerations: present Contractions: None NST start time: 0955 NST stop time: 1027 NST strip reviewed, interpreted, and approved by OB providerDinorah CRNP . NST strip stored in clinic storage file documented in this encounter Nursing Notes * Cat Doshi LPN - 08/10/2023 10:08 AM EDT Chief Complaint Patient presents with Non Stress Test Class 3 Return Visit 34w6d Pt is with no concerns. Cat Doshi LPN documented in this encounter Plan of Treatment Upcoming Encounters Date Type Department Care Team (Late st Contact Info) Description 08/19/2023 11:15 AM EDT Office Visit Gynecology/Obstetrics Lyssa Gaines [address] [place] [address] Frank Paniagua MD [address] [place] [address] Eder Non Stress Tests [place] [address] [place] [address] 08/24/2023 2:30 PM EDT Office Visit Gynecology/Obstetrics Lyssa Gaines [address] [place] [address] Dinorah Hiader CRNP [address] [place] [address] Eder Non Stress Tests [place] [address] 08/25/2023 1:45 PM EDT Imaging Maternal Medicine Imaging, [place]to [address] [place] [address] 08/31/2023 2:30 PM EDT Office Visit Gynecology/Obstetrics Lyssa Gaines [address] [place] [address] Dinorah Haider CRNP [address] [place] [address] Eder Non Stress [place] [address] 09/07/2023 1:45 PM EDT Office Visit Gynecology/Obstetrics Lyssa Gaines [address] [place] [address] Dinorah Haider CRNP [address] [place] [address] Eder Non Stress Tests [place] [address] 09/21/2023 10:30 AM EDT Office Visit Gynecology/Obstetrics Lyssa Gaines [address] [place] [address] Gladys Virk CRNP [address] [place] [address] Health Maintenance Due Date Last Done Comments [...] high-risk documented in this encounter Care Teams Fish Bailer Relationship Specialty Start Date End Date Shabbir Thompson MD [address] [place] [address] PCP - General Internal Medicine 07/27/21 documented as of this encounter
--- OUTSIDE RECORDS SUMMARY | 2023-09-14 09:18 | External Medical Summary | Summary of Care ---
Author Name Unknown Organization [facility] Address [address] [place] [address] Phone [phone] Care Team Providers Care Rodent Control Worker Name Role Phone Shabbir Thompson MD Primary Care Provider [phone] Encounter Details Date Type Department Care Team (Late st Contact Info) Description 07/22/2023 Telephone Gynecology/Obstetrics [facility] [address] [facility] [place] [address] Nafisa Vasquez, [facility] [address] [facility] [place] [address] Allergies No known active allergiesdocumented as of [...] in chart from last , delivered in [place]. Records in chart do not support this [...] money to get more. Never true 01/21/2023 [place] Depression Scale Answer Date Recorded [place] Depression Scale Total 2 02/04/2023 The thought [...] encounter Miscellaneous Notes * Telephone Encounter - Franca Boyd LPN - 07/22/2023 2:02 PM EDT Patient notified * Telephone Encounter - Franca Boyd LPN - 07/22/2023 2:00 PM EDT left message for patient to call office * Telephone Encounter - Franca Boyd LPN - 07/22/2023 2:00 PM EDT ----- Message from Nafisa Vasquez CNM sent at 07/22/2023 1:53 PM EDT ----- Please let patient know she tested positive for bacterial vaginosis. I have sent a prescription formetronidazole 500mg PO BID x 7 days. She tested negative for trichomonas and yeast. Thanks! Nafisa Vasquez CNM documented in this encounter Plan of Treatment Upcoming Encounters Date Type Department Care Team (Late st Contact Info) Description 08/04/2023 9:45 AM EDT Office Visit Gynecology/Obstetrics Lyssa Gaines [address] [place] [address] Dinorah Haider CRNP [address] [place] [address] Eder Non Stress Tests [facility]to [address] [place] [address] 08/10/2023 10:00 AM EDT Office Visit Gynecology/Obstetrics AdánSaycrystal Jamesons [address] [place] [address] Dinorah Haider CRNP [address] [place] [address] Eder Non Stress Tests Loreto [address] [place] [address] 08/18/2023 1:00 PM EDT Office Visit Gynecology/Obstetrics AdánSays Gaines [address] [place] [address] Gladys Virk CRNP [address] [place] [address] Eder Non Stress Tests [facility]to [address] [place] [address] 08/24/2023 2:30 PM EDT Office Visit Gynecology/Obstetrics Lyssa Gaines [address] [place] [address] Dinorah Haider CRNP [address] [place] [address] Eder Non Stress Tests [facility]to [address] [place] [address] 08/25/2023 1:45 PM EDT Imaging Maternal Medicine Imaging, Loreto Gaines [address] [place] [phone] 08/31/2023 2:30 PM EDT Office Visit Gynecology/Obstetrics Lyssa Gaines [address] [place] [address] Dinorah Haider CRNP [address] [place] [address] Eder Non Stress Tests Loreto [address] [place] [address] 09/07/2023 1:45 PM EDT Office Visit Gynecology/Obstetrics Lyssa Gaines [address] [place] [address] Dinorah Haider CRNP [address] [place] [address] Eder Non Stress Tests [facility]oreto [address] [place] [address] Health Maintenance Due Date Last Done Comments Pneumococcal Vaccine: Pediat rics (0 to 5 Years) and At-Risk Patients (6 to 64 Years) (1 of 2 - PCV) 2006 Depression Screening 2012 GARDASIL-HPV IMMUNIZATION SE [facility] (2 - 2-dose series) 10/21/2013 04/23/2013 Hepatitis [...] filedocumented as of this encounter Care Teams Rodent Control Worker Relationship Specialty Start Date End Date Shabbir Thompson MD [address] [place] [address] PCP - General Internal Medicine 07/27/21 documented as of this encounter
--- OUTSIDE RECORDS SUMMARY | 2023-09-14 09:18 | External Medical Summary | Summary of Care ---
Author Name Unknown Organization [facility] Address [address] [place] [address] Phone [phone] Care Team Providers Care Electrogalvanizing Machine Operator Name Role Phone Shabbir Thompson MD Primary Care Provider [phone] Reason for Visit * Reason Comments Return Visit Encounter Details Date Type Department Care Team (Late st Contact Info) Description 08/25/2023 11:15 AM EDT Office Visit Gynecology/Obstetric s [facility] [address] [place] [address] Frank Paniagua MD [address] [place] [address] Eder, Non Stress Tests [facility]to [address] [place] [address] History of gestational hypertension*; History of delivery; Obesity in , antepartum; Maternal asthma complicating ; High-risk in third trimester; Short interval between pregnancies complicating , antepartum Allergies No known active allergiesdocumented as of this encounter (statuses as of 08/25/2023) Medications Medication Sig Dispensed Refills Start Date [...] as of this encounter (statuses as of 08/25/2023) Active Problems Problem Noted Date Diagnosed Date [...] as of this encounter (statuses as of 08/25/2023) Resolved Problems Problem Noted Date Diagnosed Date [...] in chart from last , delivered in [place]. Records in chart do not support this [...] as of this encounter (statuses as of 08/25/2023) Immunizations Name Administration Dates Next Due TDAP [...] money to get more. Never true 08/18/2023 [place] Depression Scale Answer Date Recorded [place] Depression Scale Total 2 02/04/2023 The thought [...] Sign Reading Time Taken Comments Blood Pressure 120/72 08/25/2023 11:11 AM EDT Pulse - - Temperature - - Respiratory Rate - - Oxygen Saturation - - Inhaled Oxygen Concentration - - Weight 119.3 kg (263 lb) 08/25/2023 11:11 AM EDT Height 157.5 cm (5' 2") 08/25/2023 11:11 AM EDT Body Mass Index 48.1 08/25/2023 11:11 AM EDT documented in this encounter H&P Notes * Frank Paniagua MD - 08/25/2023 11:48 AM EDT Primo Mccains [address] [address] Appt line [phone] Holly Hartman is a 23 year old year old year old at 37w0d Patient is . Estimated Dateof Delivery: 09/15/23 Prior c/sec x 2. Wishes to have repeat with permanent sterilization Patient is here for preop OB History Para Term AB Living 4 2 2 1 2 SAB IAB Ectopic Multiple Live Births 1 2 # Outcome Date GA Lbr Eugene/2nd Weight Sex Type Anes PTL Lv 4 Current 3 Term 03/02/22 39w5d 4.06 kg (8 lb 15.2 oz) M CS-LTranv Spinal N JOEL 2 SAB 03/2021 1 Term 07/25/20 39w2d 3.922 kg (8 lb 10.3 oz) F CS-LTranv JOEL Complications: Failure to Progress in Second Stage, Gestational hypertension, Hypertension, Asynclitism, Arrested active phase of labor Obstetric Comments 2022 #1 Kvng, age 30, asthma, 3rd child together, no other children Date Labor Sex Delivery Anesth Del Comments GA Length Weight Type Site [employer] History: Menstrual Index: // days. Denies h/o STDs and abnormal Paps. Her past medical/surgical histories and current medications are recorded in the electronic record. Past Surgical History: Procedure Laterality Date DELIVERY 07/25/2020 REPAIR OF KNEE LIGAMENT/CAPSULE 08/2018 Family History Problem Relation Name Age of Onset Hypertension Mother No Known Problems Father No Known Problems Sister No Known Problems Sister No Known Problems Brother No Known Problems Brother Cancer Grandmother (Maternal) Diabetes Grandmother (Paternal) Asthma Daughter History Social History Socioeconomic History Marital status: Spouse name: Not on file Number of children: Not on file Years of education: Not on file Highest education level: Not on file Occupational History Not on file Tobacco Use Smoking status: Never Smokeless tobacco: Never Substance and Sexual Activity Alcohol use: Not Currently Drug use: Not Currently Sexual activity: Yes Partners: Male Other Topics Concern Not on file Social History Narrative Not on file Social Determinants of Health Financial Resource Strain: Not on file Food Insecurity: No Food Insecurity (08/18/2023) Hunger Vital Sign Worried About Running Out of Food in the Last Year: Never true Ran Out of Food in the Last Year: Never true Transportation Needs: Not on file Physical Activity: Not on file Stress: Not on file Social Connections: Not on file Intimate Partner Violence: Not on file Housing Stability: Not on file @[employer]@ Physical Exam: BP 120/72 | Ht 1.575 m (5' 2") | Wt 119.3 kg (263 lb) | LMP 12/01/2022 (Exact Date) | BMI 48.10 kg/m | BSA 2.28 m CV: S1, S2. Regular rate and Rhythm Lungs: Clear to auscultation bilaterally. Abdomen: Soft with a gravid uterus and no palpable contractions. Fundal Height: 37cms heart rate: 140/min Extremities: Soft non tender calves bilaterally. A/P: 23 year old year old Prior c/sec x2 Wishes to have permanent steriization We have discussed the risk alternatives and complications of surgery including more surgery to correct complication,risk of anesthesia,infection,damage to internal organs and . We have also discussed the possibility that pt's present situation may not change. Pt is aware and wishes to proceed to surgery. Consent is signed Scheduled for repat c/sec and bilateral tubes removal Frank Paniagua MD 08/25/2023 11:53 AM documented in this encounter Plan of Treatment Upcoming Encounters Date Type Department Care Team (Late st Contact Info) Description 08/31/2023 7:45 AM EDT Office Visit Gynecology/Obstetrics Lyssa Gaines [address] [place] [address] Dinorah Haider CRNP [address] [place], [place] [address] Megan Gaines Stress Tests [facility]to [address] [place], [place] [address] 09/07/2023 1:45 PM EDT Office Visit Gynecology/Obstetrics Mccainval Gaines [address] [place] [address] Dinorah Haider CRNP [address] [place], [place] [address] Megan Gaines Stress Tests [facility]oreto [address] [place], [place] [address] 09/21/2023 10:30 AM EDT Office Visit Gynecology/Obstetrics Lyssa Gaines [address] [place] [address] Gladys Virk CRNP [address] [place] [address] Pending Results Name Type Priority Associated Diagnoses Date /Time GROUP B STREP CULTURE/PCR Lab Routine History of gestational hypertension 08/25/2023 11:57 AM EDT Scheduled Orders Name Type Priority Associated Diagnoses Orde r Schedule GROUP B STREP CULTURE/PCR Lab Routine History of gestational hypertension Expected: 08/25/2023, Expires: 08/24/2024 Health Maintenance Due Date Last Done Comments [...] high-risk documented in this encounter Care Teams Electrogalvanizing Machine Operator Relationship Specialty Start Date End Date Shabbir Thompson MD [address] [place] [address] PCP - General Internal Medicine 07/27/21 documented as of this encounter
--- OUTSIDE RECORDS SUMMARY | 2023-09-14 09:18 | External Medical Summary | Summary of Care ---
Author Name Unknown Organization [facility] Address [address] [facility] [place] [address] Phone [phone] Care Team Providers Care Mortgage Loan Reviewer Name Role Phone Shabbir Thompson MD Primary Care Provider [phone] Reason for Visit * Reason Comments Blood Pressure Check Encounter Details Date Type Department Care Team (Late st Contact Info) Description 08/17/2023 10:00 AM EDT Nurse Only Gynecology/Obstetrics [facility] [address] [facility] [place] [address] Gw, Nurse Obgyn Injection [address] [facility] [place] [address] Blood Pressure Check Allergies No known active [...] in chart from last , delivered in [place]. Records in chart do not support this [...] money to get more. Never true 01/21/2023 [place] Depression Scale Answer Date Recorded [place] Depression Scale Total 2 02/04/2023 The thought [...] 11:15 AM EDT Office Visit Gynecology/Obstetrics Lyssa Gaiens [address] [place] [address] Frank Paniagua MD [address] [place] [address] Gaines, Non Stress Tests Loreto [address] [place] [address] 08/24/2023 2:30 PM EDT Office Visit Gynecology/Obstetrics Lyssa Gaines [address] [place] [address] Dinorah Haider CRNP [address] [place] [address] Gaines, Non Stress Tests Loreto [address] [place] [address] 08/25/2023 1:45 PM EDT Imaging Maternal Medicine Imaging, Loreto Gaines [address] [place] [address] 08/31/2023 2:30 PM EDT Office Visit Gynecology/Obstetrics Lyssa Gaines [address] [place] [address] Dinorah Haider CRNP [address] [place] [address] Gaines, Non Stress Tests Loreto [address] [place] [address] 09/07/2023 1:45 PM EDT Office Visit Gynecology/Obstetrics Lyssa Gaines [address] [place] [address] Dinorah Haider CRNP [address] [place] [address] Eder, Non Stress Tests Loreto [address] [place] [address] 09/21/2023 10:30 AM EDT Office Visit Gynecology/Obstetrics Lyssa Gaines [address] [place] [address] Gladys Virk CRNP [address] [place] [address] Pending Results Name Type Priority Associated Diagnoses [...] Negative Ketone, Urine Negative Negative mg/dL Specific [place], Urine 1.020 1.003 - 1.030 Blood, Urine [...] during documented in this encounter Care Teams Mortgage Loan Reviewer Relationship Specialty Start Date End Date Shabbir Thompson MD [address] [place] [address] PCP - General Internal Medicine 07/27/21 documented as of this encounter
--- OUTSIDE RECORDS SUMMARY | 2023-09-14 09:18 | External Medical Summary | Summary of Care ---
Author Name Unknown Organization [facility] Address [address] [place] [address] Phone [phone] Care Team Providers Care Insurance Agency Manager Name Role Phone Shabbir Thompson MD Primary Care Provider [phone] Reason for Visit * Reason Comments Return Visit Encounter Details Date Type Department Care Team (Late st Contact Info) Description 07/21/2023 2:30 PM EDT Office Visit Gynecology/Obstetric [facility] 132 [facility] [place] [address] Ale Vasquez CNM [address] [place] [address] High-risk , third trimester*; History of [...] in chart from last , delivered in [place]. Records in chart do not support this [...] money to get more. Never true 01/21/2023 [place] Depression Scale Answer Date Recorded [place] Depression Scale Total 2 02/04/2023 The thought [...] documented in this encounter Progress Notes * Ale Vasquez CNM - 07/21/2023 2:12 PM EDT [...] unable to visualize cervix, bimanual exam deferred Kitchen Steward Documentation Provider requested warehouse handler. Name of warehouse handler: Rosa Chavez ASSESSMENT/PLAN: ([id number]) History of gestational [...] encounter diagnosis) Plan: -message sent to Silvina Alejandro to help schedule c/s and tubal ligation -Had MFM ultrasound today; results not yet available -vaginosis swab collected - labor precautions and kick counts reviewed - RTO in 2 weeks Ale Vasquez CNM documented in this encounter Nursing Notes * Ivory Gomez RN - 07/21/2023 2:10 PM EDT Patient here for RUDDY 32w0d Having cramping today that is new since last visit Increase in discharge Ivory Gomez RN documented in this encounter Miscellaneous Notes * Addendum Note - Ale Vasquez CNM - 07/22/2023 1:53 PM EDTAddended by: ALE VASQUEZ on: 07/22/2023 01:53 PM Modules accepted: Orders * Result Encounter Note - Ale Vasquez CNM - 07/22/2023 1:53 PM EDT Please let patient know she tested positive for bacterial vaginosis. I have sent a prescription formetronidazole 500mg PO BID x 7 days. She tested negative for trichomonas and yeast. Thanks! Ale Vasquez CNM documented in this encounter Plan of Treatment Upcoming Encounters Date Type Department Care Team (Late st Contact Info) Description 08/04/2023 9:45 AM EDT Office Visit Gynecology/Obstetrics Lyssa Gaines [address] [place] [address] Dinorah Haider CRNP [address] [place] [address] Eder Non Stress Tests Loreto [address] [place] [address] 08/10/2023 10:00 AM EDT Office Visit Gynecology/Obstetrics Lyssa Gaines [address] [place] [address] Dinorah Haider CRNP [address] [place] [address] Eder, Non Stress Tests Loreto [address] [place] [address] 08/18/2023 1:00 PM EDT Office Visit Gynecology/Obstetrics Lyssa Jamesons [address] [place] [address] Gladys Virk CRNP [address] [place] [address] Gaines, Non Stress Tests Loreto [address] [place] [address] 08/24/2023 2:30 PM EDT Office Visit Gynecology/Obstetrics Lyssa Jamesons [address] [place] [address] Dinorah Haider CRNP [address] [place] [address] Eder, Non Stress Tests Loreto [address] [place] [address] 08/25/2023 1:45 PM EDT Imaging Maternal Medicine Imaging, Loreto Gaines [address] [place] [phone] 08/31/2023 2:30 PM EDT Office Visit Gynecology/Obstetrics Lyssa Gaines [address] [place] [address] Dinorah Haider CRNP [address] [place] [address] Eder, Non Stress Tests Loreto [address] [place] [address] 09/07/2023 1:45 PM EDT Office Visit Gynecology/Obstetrics Lyssa Gaines [address] [place] [address] Dinorah Haider CRNP [address] [place] [address] Gaines, Non Stress Tests Loreto [address] [place] [address] Health Maintenance Due Date Last Done Comments [...] Procedure Name Priority Date/Time Associated Diagnosis Comments VAGINOSIS PANEL, PCR Routine 07/21/2023 2:43 PM EDT Vaginal discharge documented in this encounter Results * (ABNORMAL) VAGINOSIS PANEL, PCR (07/21/2023 2:43 PM EDT) Bacterial Vaginosis Result Positive(A) Negative 07/22/2023 11:06 AM EDT [facility] Comment:Positive for Bacteri al Vaginosis. Correlate results with other clinical findings. Margarita species Result Negative Negative 07/22/2023 11:06 AM EDT [facility] Comment:No Margarita species g roup RNA detected. Correlate results with other clinical findings. Margarita glabrata Result Negative Negative 07/22/2023 11:06 AM EDT LABORATORY [facility] Comment:No Margarita glabrata RNA detected. Correlate results with other clinical findings. Trichomonas Result Negative Negative 07/22/2023 11:06 AM EDT LAB[facility]ORY [facility] Comment:No Trichomonas vagin jonathna RNA detected. Swab Specimen from wound / Unknown 07/21/2023 2:43 PM EDT 07/21/2023 2:43 PM EDT Ale Vasquez CNM LAB MICRO - GENERAL ORDERABLES LABORATORY [facility] [address] [place] [address] documented in this encounter Visit Diagnoses Diagnosis High-risk , [...] infective documented in this encounter Care Teams Insurance Agency Manager Relationship Specialty Start Date End Date Shabbir Thompson MD [address] [place] [address] PCP - General Internal Medicine 07/27/21 documented as of this encounter
--- OUTSIDE RECORDS SUMMARY | 2023-09-14 09:18 | External Medical Summary | Summary of Care ---
Author Name Unknown Organization [facility] Address [address] [place] [address] Phone [phone] Care Team Providers Care Center Rep Name Role Phone Shabbir Thompson MD Primary Care Provider [phone] Encounter Details Date Type Department Care Team (Late st Contact Info) Description 07/22/2023 Telephone Gynecology/Obstetrics [facility] 132 [facility] [place] [address] Nafisa Vasquez, [facility] [place] [address] Allergies No known active [...] in chart from last , delivered in [place]. Records in chart do not support this [...] money to get more. Never true 01/21/2023 [place] Depression Scale Answer Date Recorded [place] Depression Scale Total 2 02/04/2023 The thought [...] Gaines [address] [place] [address] Dinorah Haider CRNP [address] [place] [address] Eder Non Stress Tests [facility]to [address] [place] [address] 08/10/2023 10:00 AM EDT Office Visit Gynecology/Obstetrics AdánSaycrystal Jamesons [address] [place] [address] Dinorah Haider CRNP [address] [place] [address] Eder Non Stress Tests Loreto [address] [place] [address] 08/18/2023 1:00 PM EDT Office Visit Gynecology/Obstetrics Ad[facility]Says Gaines [address] [place] [address] Gladys Virk CRNP [address] [place] [address] Eder Non Stress Tests Loreto [address] [place] [address] 08/24/2023 2:30 PM EDT Office Visit Gynecology/Obstetrics Lyssa Gaines [address] [place] [address] Dinorah Haider CRNP [address] [place] [address] Eder Non Stress Tests Loreto [address] [place] [address] 08/25/2023 1:45 PM EDT Imaging Maternal Medicine Imaging, Loreto Gaines [address] [place] [phone] 08/31/2023 2:30 PM EDT Office Visit Gynecology/Obstetrics Lyssa Gaines [address] [place] [address] Dinorah Haider CRNP [address] [place] [address] Eder Non Stress Tests Loreto [address] [place] [address] 09/07/2023 1:45 PM EDT Office Visit Gynecology/Obstetrics Lyssa Gaines [address] [place] [address] Dinorah Haider CRNP [address] [place] [address] Eder Non Stress Tests Loreto [address] [place] [address] Health Maintenance Due Date Last Done Comments Pneumococcal Vaccine: Pediat rics (0 to 5 Years) and At-Risk Patients (6 to 64 Years) (1 of 2 - PCV) 2006 Depression Screening 2012 GARDASIL-HPV IMMUNIZATION SE [facility] (2 - 2-dose series) 10/21/2013 04/23/2013 Hepatitis [...] filedocumented as of this encounter Care Teams Center Rep Relationship Specialty Start Date End Date Shabbir Thompson MD [address] [place] [address] PCP - General Internal Medicine 07/27/21 documented as of this encounter
--- OUTSIDE RECORDS SUMMARY | 2023-09-14 09:18 | External Medical Summary | Summary of Care ---
Author Name Unknown Organization [facility] Address [address] [place] [address] Phone [phone] Care Team Providers Care Programmer Analyst Consultant Name Role Phone Shabbir Thompson MD Primary Care Provider [phone] Encounter Details Date Type Department Care Team (Late st Contact Info) Description 07/21/2023 1:45 PM EDT Office Visit Bariatric Physician Obstetrics Maternal Medicine, [address] [address] Joellen Marks, DO [address] [place], [place] [id number] Obesity in , antepartum*; Ultrasound for screening [...] in chart from last , delivered in [place]. Records in chart do not support this [...] money to get more. Never true 01/21/2023 [place] Depression Scale Answer Date Recorded [place] Depression Scale Total 2 02/04/2023 The thought [...] Gaines [address] [place] [address] Dinorah Haider CRNP [address] [place] [address] Eder Non Stress Tests Loreto [address] [place] [address] 08/10/2023 10:00 AM EDT Office Visit Gynecology/Obstetrics [facility] Gaines [address] [place] [address] Dinorah Haider CRNP [address] [place] [address] Eder Non Stress Tests Loreto [address] [place] [address] 08/18/2023 1:00 PM EDT Office Visit Gynecology/Obstetrics Ad[facility]'s Gaines [address] [place] [address] Gladys Virk CRNP [address] [place] [address] Eder Non Stress Tests Loreto [address] [place] [address] 08/24/2023 2:30 PM EDT Office Visit Gynecology/Obstetrics Ad[facility] Gaines [address] [place] [address] Dinorah Haider CRNP [address] [place], [place] [address] Eder, Non Stress Tests [place] [address] 08/25/2023 1:45 PM EDT Imaging Maternal Medicine Imaging, Loreto [address] [place] [phone] 08/31/2023 2:30 PM EDT Office Visit Gynecology/Obstetrics Lyssa Gaines [address] [place], [place] [address] Dinorah Haider CRNP [address] [place], [place] [address] Eder Non Stress Tests Loreto [address] [place] [address] 09/07/2023 1:45 PM EDT Office Visit Gynecology/Obstetrics Lyssa Gaines [address] [place] [address] Dinorah Haider CRNP [address] [place] [address] Eder Non Stress Tests Loreto [address] [place] [address] Health Maintenance Due Date Last Done Comments [...] incidental documented in this encounter Care Teams Programmer Analyst Consultant Relationship Specialty Start Date End Date Shabbir Thompson MD [address] [place] [address] PCP - General Internal Medicine 07/27/21 documented as of this encounter
--- OUTSIDE RECORDS SUMMARY | 2023-09-14 09:18 | External Medical Summary ---
Author Name Unknown Address Unknown Organization [id number]:[facility] [address] [place] [address] Laboratory Report Ordering Provider Test Date Status LELO RIVERA 08/17/2023 10:30:52 Final Observation Date Value Abnormality Reference (Units) Status Bacteria identified in Specimen by Culture 08/17/2023 10:30:52 No significant growth Final Test: Culture, Urine, Quant itative
Specimen Source: Urine, Clean Catch
Specimen Type: Urine
Specimen Date: 08/17/2023 1030
Result Date: 08/18/2023 1221
Result Status: Final result
Resulting Lab: [facility]
[address]
[place] [address]

CULTURE

No significant growth

null Performing Location [facility] [place] [address] [facility] [address]
--- OUTSIDE RECORDS SUMMARY | 2023-09-14 09:19 | External Medical Summary ---
Author Name Unknown Address Unknown Organization [id number]:[facility] [place] [address] [place] [address] Laboratory Report Ordering Provider Test Date Status JULIO WILKES 06/22/2023 10:30:52 Final Observation Date Value Abnormality Reference (Units ) Status Treponema pallidum Ab [Presence] in Serum by Immunoassay 06/22/2023 10:30:52 Nonreactive Nonreactive Final No serologic evidence of syp hilis. No additional testing clinicially indicated at this time. Consider repeat testing in 2-4 weeks if acute or primary syphilis is suspected. Performing Location [facility] [place] [address] [place] [address]
--- OUTSIDE RECORDS SUMMARY | 2023-09-14 09:19 | External Medical Summary ---
Author Name Unknown Address Unknown Organization [id number]:[facility] [address] [place] [address] Laboratory Report Ordering Provider Test Date Status JULIO WILKES 06/22/2023 10:30:52 Final Observation Date Value Abnormality Reference (Units ) Status WBC, Total 06/22/2023 10:30:52 12.74 Above high normal 4 .00-10.80 (K/uL) Final RBC 06/22/2023 10:30:52 3.94 3.85-5.15 (M/uL) Final Hemoglobin 06/22/2023 10:30:52 12.1 12.0-15.3 (g/dL) Final Anemia reflex testing trigge rs on a HGB < 12.0 for Females and HGB < 13.0 for Males in accordance with the WHO Anemia Guidelines
Anemia reflex testing triggers on a HGB < 12.0 for Females and HGB < 13.0 for Males in accordance with the WHO Anemia Guidelines HCT 06/22/2023 10:30:52 35.1 Below low normal 36. 0-45.2 (%) Final MCV 06/22/2023 10:30:52 89.1 81.5-97.5 (fL) Final MCH 06/22/2023 10:30:52 30.7 27.0-34.0 (pg) Final MCHC 06/22/2023 10:30:52 34.5 32.0-36.0 (g/dL) Final RDW 06/22/2023 10:30:52 12.5 11.5-15.5 (%) Final Platelets 06/22/2023 10:30:52 271 140-400 (K /uL) Final MPV 06/22/2023 10:30:52 10.6 6.6-11.1 ( fL) Final Nucleated erythrocytes/100 leukocytes [Ratio] in Blood by Automated count 06/22/2023 10:30:52 0 <=0 (/100 WBCs) Final Performing Location [facility] [place] [address] [facility] [address]
--- OUTSIDE RECORDS SUMMARY | 2023-09-14 09:19 | External Medical Summary | Summary of Care ---
Author Name Unknown Organization [facility] Address [address] [place] [address] Phone [phone] Care Team Providers Care Associate Professor Of Literature Name Role Phone hSabbir Thompson MD Primary Care Provider [phone] [phone] Reason for Visit * Reason Comments Return Visit Encounter Details Date Type Department Care Team (Late st Contact Info) Description 06/22/2023 9:45 AM EDT Office Visit Gynecology/Obstetric s Lyssa Gaines [address] [place] [address] Dinorah Haider CRNP [address] [place] [address] History of gestational hypertension*; High-risk in third trimester; History of delivery; Obesity in , antepartum; Maternal asthma complicating ; Short interval between pregnancies complicating , antepartum Allergies No known active allergiesdocumented as of this encounter (statuses as of 06/22/2023) Medications Medication Sig Dispensed Refills Start Date End Date Status Gummies 0.18-25 MG Oral Tablet Chewable Take by mouth . 0 Active Aspirin 81 MG Oral Tablet Delayed Release Take 1 Tablet by mouth in the morning. 0 Active documented as of this encounter (statuses as of 06/22/2023) Active Problems Problem Noted Date Diagnosed Date [...] as of this encounter (statuses as of 06/22/2023) Resolved Problems Problem Noted Date Diagnosed Date [...] in chart from last , delivered in [place]. Records in chart do not support this [...] as of this encounter (statuses as of 06/22/2023) Immunizations Name Administration Dates Next Due TDAP [...] money to get more. Never true 01/21/2023 [place] Depression Scale Answer Date Recorded [place] Depression Scale Total 2 02/04/2023 The thought [...] Sign Reading Time Taken Comments Blood Pressure 118/64 06/22/2023 9:36 AM EDT Pulse - - Temperature - - Respiratory Rate - - Oxygen Saturation - - Inhaled Oxygen Concentration - - Weight 117.5 kg (259 lb) 06/22/2023 9:36 AM EDT Height 157.5 cm (5' 2") 06/22/2023 9:36 AM EDT Body Mass Index 47.37 06/22/2023 9:36 AM EDT documented in this encounter Progress Notes * Dinorah Haider CRNP - 06/22/2023 9:51 AM EDT 27w6d Has had night sweats the past week, every night. Also having some nose bleeds. Baby is active. No contractions, no bleeding or LOF. Glucola today. Declines TDAP. MFM appt today. HEBER Kim * Suzanna Renteria LPN - 06/22/2023 9:36 AM EDT 27w6d Night sweats every night for past week Nose bleeds 3-4 times a day documented in this encounter Plan of Treatment Upcoming Encounters Date Type Department Care Team (Late st Contact Info) Description 06/22/2023 1:45 PM EDT Imaging Radiology, [address] [address] 06/22/2023 1:45 PM EDT Office Visit Boat Patcher Plastic Obstetrics Maternal Medicine, [address] [address] Joellen Marks, DO [address] [place] [address] 07/06/2023 2:15 PM EDT Office Visit Gynecology/Obstetrics [address] [place] [address] [facility] [address] 07/21/2023 1:45 PM EDT Imaging Maternal Medicine Imaging, [address] [address] 07/21/2023 2:30 PM EDT Office Visit Gynecology/Obstetrics [facility] [address] [facility] [place] [address] Nafisa Vasquez, ROSEANNE [address] [place] [address] [place] [address] Health Maintenance Due Date Last Done Comments [...] Diagnoses Diagnosis History of gestational hypertension- Primary High-risk in third trimester History of delivery Other postprocedural status Obesity in , antepartum Obesity complicating , childbirth, or the puerperium, antepartum condition or complication Maternal asthma complicating Other current maternal conditions classifiable elsewhere, complicating , childbirth, or the puerperium, unspecified as to episode of care Short interval between pregnancies complicating , antepartum Supervision of other high-risk documented in this encounter Care Teams Associate Professor Of Literature Relationship Specialty Start Date End Date Shabbir Thompson MD [address] [place] [address] PCP - General Internal Medicine 07/27/21 documented as of this encounter
--- OUTSIDE RECORDS SUMMARY | 2023-09-14 09:19 | External Medical Summary | Summary of Care ---
Author Name Unknown Organization [facility] Address [address] [place] [address] Phone [phone] Care Team Providers Care Pet Caregiver Name Role Phone Shabbir Thompson MD Primary Care Provider [phone] Reason for Visit * Reason Comments Outpatient Testing Encounter Details Date Type Department Care Team (Late st Contact Info) Description 06/22/2023 9:20 AM EDT Laboratory Laboratory, [facility] [address] [facility] 132 [place] [address] High-risk in second trimester Allergies No known active allergiesdocumented as of [...] in chart from last , delivered in [place]. Records in chart do not support this [...] money to get more. Never true 01/21/2023 [place] Depression Scale Answer Date Recorded [place] Depression Scale Total 2 02/04/2023 The thought [...] on file documented as of this encounter Plan of Treatment Upcoming Encounters Date Type Department Care Team (Late st Contact Info) Description 06/22/2023 1:45 PM EDT Imaging Radiology, [address] [address] 06/22/2023 1:45 PM EDT Office Visit Inpatient Services Director Obstetrics Maternal Medicine, [address] [address] Joellen Marks, DO [address] [facility] [place] [address] 07/06/2023 2:15 PM EDT Office Visit Gynecology/Obstetrics Lyssa Gaines [address] [place] [address] Dinorah Haider CRNP [address] [place] [address] 07/21/2023 1:45 PM EDT Imaging Maternal Medicine Imaging, Loreto Gaines [address] [place] [phone] 07/21/2023 2:30 PM EDT Office Visit Gynecology/Obstetrics Lyssa Gaines [address] [place] [address] Nafisa Vasquez, [address] [place] [address] Pending Results Name Type Priority Associated Diagnoses Date /Time 50-G GESTATIONAL GLUCOSE, 1 HOUR Lab Routine High-risk in second trimester 06/22/2023 10:30 AM EDT CBC WITH WBC DIFFERENTIAL AND ANEMIA REFLEX WORKUP Lab Routine High-risk in second trimester 06/22/2023 10:30 AM EDT SYPHILIS ANTIBODY SCREEN WITH REFLEX TO RPR Lab Routine High-risk in second trimester 06/22/2023 10:30 AM EDT ANEMIA CBC Lab Routine High-risk in second trimester 06/22/2023 10:30 AM EDT DIFFERENTIAL, AUTOMATED Lab Routine High-risk in second trimester 06/22/2023 10:30 AM EDT ANEMIA REFLEX CHEMISTRY HOLD Lab Routine High-risk in second trimester 06/22/2023 10:30 AM EDT SYPHILIS ANTIBODY SCREEN Lab Routine High-risk in second trimester 06/22/2023 10:30 AM EDT Health Maintenance Due Date [...] this encounter Visit Diagnoses Diagnosis High-risk in second trimester documented in this encounter Care Teams Pet Caregiver Relationship Specialty Start Date End Date Shabbir Thompson MD [address] [place] [id number] PCP - General Internal Medicine 07/27/21 documented as of this encounter
--- OUTSIDE RECORDS SUMMARY | 2023-09-14 09:19 | External Medical Summary | Summary of Care ---
Author Name Unknown Organization [facility] Address [address] [place] [address] Phone [phone] Care Team Providers Care Vp Lab Name Role Phone Shabbir Thompson MD Primary Care Provider [phone] [phone] Reason for Visit * Reason Comments Return Visit Encounter Details Date Type Department Care Team (Late st Contact Info) Description 07/21/2023 2:30 PM EDT Office Visit Gynecology/Obstetric [facility] 132 [facility] [place] [address] Nafisa Vasquez CNM 400 [facility] [place] [address] High-risk , third trimester*; History of [...] in chart from last , delivered in [place]. Records in chart do not support this [...] money to get more. Never true 01/21/2023 [place] Depression Scale Answer Date Recorded [place] Depression Scale Total 2 02/04/2023 The thought [...] unable to visualize cervix, bimanual exam deferred Product Safety Technician Documentation Provider requested fuel oil truck driver. Name of fuel oil truck driver: Rosa Chavez ASSESSMENT/PLAN: ([id number]) History of gestational [...] Lyssa Gaines [address] [place] [address] Dinorah Haider CRNP [address] [place] [address] GainesMegan rojas Stress Tests Loreto [address] [place] [address] 08/25/2023 1:45 PM EDT Imaging Maternal Medicine Imaging, Loreto Jamesoncrystal [place] [phone] Pending Results Name Type Priority Associated Diagnoses [...] infective documented in this encounter Care Teams Vp Lab Relationship Specialty Start Date End Date Shabbir Thompson MD [address] [place] [address] PCP - General Internal Medicine 07/27/21 documented as of this encounter
--- OUTSIDE RECORDS SUMMARY | 2023-09-14 09:19 | External Medical Summary | Summary of Care ---
Author Name Unknown Organization [facility] Address [address] [facility] [place] [address] Phone [phone] Care Team Providers Care Day Haul Or Farm Charter Bus Driver Name Role Phone Shabbir Thompson MD Primary Care Provider [phone] [phone] Encounter Details Date Type Department Care Team (Late st Contact Info) Description 06/15/2023 11:00 AM EDT Nurse Only Gynecology/Obstetrics [facility] 132 [facility] [place] [address] Gw, Nurse Obgyn Injection 132 [facility] [place] [address] Allergies No known active allergiesdocumented as of this encounter (statuses as of 06/15/2023) Medications Medication Sig Dispensed Refills Start Date End Date Status Gummies 0.18-25 MG Oral Tablet Chewable Take by mouth . 0 Active Aspirin 81 MG Oral Tablet Delayed Release Take 1 Tablet by mouth in the morning. 0 Active documented as of this encounter (statuses as of 06/15/2023) Active Problems Problem Noted Date Diagnosed Date [...] as of this encounter (statuses as of 06/15/2023) Resolved Problems Problem Noted Date Diagnosed Date [...] in chart from last , delivered in [place]. Records in chart do not support this [...] as of this encounter (statuses as of 06/15/2023) Immunizations Name Administration Dates Next Due TDAP [...] money to get more. Never true 01/21/2023 Lane Depression Scale Answer Date Recorded Lane Depression Scale Total 2 02/04/2023 The thought [...] Sign Reading Time Taken Comments Blood Pressure 118/66 06/15/2023 11:22 AM EDT Pulse - - Temperature - - Respiratory Rate - - Oxygen Saturation - - Inhaled Oxygen Concentration - - Weight - - Height - - Body Mass Index - - documented in this encounter Nursing Notes * Ivory Gomez RN - 06/15/2023 11:18 AM EDT Patient here for BP check. BP 118/66. No blurry vision, slightly dizzy with position changes. Urine collected. Pt reports back pain is upper back and positional. Has not tried Tylenol yet No bleeding or leaking Reports increased vaginal pressure at times, not constant or severe Reviewed with Dr. Tolentino. She would like culture sent. Patient to take Tylenol PRN Q6H.push hydrationand monitor for changes. Call with any new or worsening concerns. documented in this encounter Plan of Treatment Upcoming Encounters Date Type Department Care Team (Late st Contact Info) Description 06/22/2023 9:20 AM EDT [facility] [address] [place] [phone] [facility] [address] [place] [address] 06/22/2023 9:45 AM EDT Office Visit Gynecology/Obstetrics [facility] [address] [facility] [place] [address] Dinorah Haider CRNP [address] [facility] [place] [address] 06/22/2023 1:45 PM EDT Imaging Radiology, [address] [address] 07/21/2023 1:45 PM EDT Imaging Maternal Medicine Imaging, [facility] [address] [place] [phone] Pending Results Name Type Priority Associated Diagnoses Date /Time CULTURE, URINE, QUANTITATIVE Lab Routine History of gestational hypertension Back pain in 06/15/2023 11:32 AM EDT Scheduled Orders Name Type Priority Associated Diagnoses Orde r Schedule CULTURE, URINE, QUANTITATIVE Lab Routine History of gestational hypertension Back pain in Expected: 06/15/2023, Expires: 06/14/2024 Health Maintenance Due Date Last Done Comments Pneumococcal Vaccine: Pediat rics (0 to 5 Years) and At-Risk Patients (6 to 64 Years) (1 of 2 - PCV) 2006 Depression Screening 2012 GARDASIL-HPV IMMUNIZATION SE HO (2 - 2-dose series) 10/21/2013 04/23/2013 Hepatitis B (1 of 3 - 19+ 3- dose series) 2019 COVID-19 Vaccine ( - 2022-2 4 season) 2022 Influenza Vaccine (FLU shot) (#1) 2022 03/24/2020, 03/24/2020, 12/19/2018, Additional history exists *SPIROMETRY ONCE FOR ASTHMA-ADULT 02/12/2023 Gonorrhea / Chlamydia Screen 02/05/2024, 04/16/2022, 08/05/2021 Pap Smear 08/05/2024 08/05/2021 DTaP,Tdap,and Td Vaccines (3 - Td or Tdap) 12/10/2031 12/09/2021, 02/20/2013 MENINGOCOCCAL (MENACTRA/MENVEO) Completed 7, 02/20/2013 documented as of this encounter Medical Devices Not on filedocumented as of this encounter Procedures Procedure Name Priority Date/Time Associated Diagnosis Comments URINALYSIS, POINT OF CARE (ENTER/EDIT) Routine 06/15/2023 History of gestational hypertension documented in this encounter Results * URINALYSIS, POINT OF CARE (ENTER/EDIT) (06/15/2023) Color, Urine Yellow Yellow or Light Yellow Clarity, Urine Cloudy Clear Glucose, Urine Negative Negative mg/dL Bilirubin, Urine Negative Negative Ketone, Urine Negative Negative mg/dL Specific [place], Urine 1.025 1.003 - 1.030 Blood, Urine Trace-intact Negative pH, Urine 7.0 5.0 - 7.5 units Protein, Urine Negative Negative mg/dL Urobilinogen, Urine 0.2 0.2 - 1.0 mg/dL Nitrite, Urine Negative Negative Esterase, Urine Trace Negative Urine 06/15/2023 Linda Tolentino MD LAB POINT OF C ARE TEST ENTER/EDIT ORDERABLES documented in this encounter Visit Diagnoses Diagnosis Back pain in - Primary Other specified complication of , unspecified as to episode of care History of gestational hypertension History of delivery Other postprocedural status Obesity in , antepartum Obesity complicating , childbirth, or the puerperium, antepartum condition or complication Maternal asthma complicating Other current maternal conditions classifiable elsewhere, complicating , childbirth, or the puerperium, unspecified as to episode of care High-risk Unspecified high-risk Short interval between pregnancies complicating , antepartum Supervision of other high-risk documented in this encounter Care Teams Day Haul Or Farm Charter Bus Driver Relationship Specialty Start Date End Date Shabbir Thompson MD [address] [place] [address] PCP - General Internal Medicine 07/27/21 documented as of this encounter
--- OUTSIDE RECORDS SUMMARY | 2023-09-14 09:19 | External Medical Summary ---
Author Name Unknown Address Unknown Organization K[facility] [address] [place] [address] Laboratory Report Ordering Provider Test Date Status JULIO WILKES 06/22/2023 10:30:52 Final Observation Date Value Abnormality Reference (Units ) Status Glucose [Moles/volume] in Serum or Plasma --1 hour post 50 g glucose PO 06/22/2023 10:30:52 129 70-129 (mg/dL) Final Performing Location [facility]ORY [facility] [place] 57-1 0 - [address] [place] [address]
--- OUTSIDE RECORDS SUMMARY | 2023-09-14 09:19 | External Medical Summary | Summary of Care ---
Author Name Unknown Organization [facility] Address 100 [place] [address] Phone [phone] Care Team Providers Care Molding Press Operator Name Role Phone Shabbir Thompson MD Primary Care Provider [phone] Encounter Details Date Type Department Care Team (Late st Contact Info) Description 06/20/2023 Telephone Gynecology/Obstetrics [facility] 132 [facility] [place] [address] Linda Tolentino MD 400 [facility] [place] [address] Allergies No known active allergiesdocumented as of this encounter (statuses as of 06/20/2023) Medications Medication Sig Dispensed Refills Start Date End Date Status Gummies 0.18-25 MG Oral Tablet Chewable Take by mouth . 0 Active Aspirin 81 MG Oral Tablet Delayed Release Take 1 Tablet by mouth in the morning. 0 Active documented as of this encounter (statuses as of 06/20/2023) Active Problems Problem Noted Date Diagnosed Date [...] as of this encounter (statuses as of 06/20/2023) Resolved Problems Problem Noted Date Diagnosed Date [...] in chart from last , delivered in [place]. Records in chart do not support this [...] as of this encounter (statuses as of 06/20/2023) Immunizations Name Administration Dates Next Due TDAP [...] money to get more. Never true 01/21/2023 [place] Depression Scale Answer Date Recorded [place] Depression Scale Total 2 02/04/2023 The thought [...] Telephone Encounter - Maryellen Jefferson RN - 06/20/2023 7:55 AM EDT MyG sent to pt. * Telephone Encounter - Brittney Mendiola LPN - 06/20/2023 7:54 AM EDT ----- Message from Linda Tolentino MD sent at 06/20/2023 6:34 AM EDT ----- Please kindly let the patient know I reviewed her urine culture, no growth. Negative for UTI Thank you ----- Message ----- From: Ivory Gomez RN Sent: 06/15/2023 11:26 AM EDT To: Linda Tolentino MD documented in this encounter Plan of Treatment Upcoming Encounters Date Type Department Care Team (Late st Contact Info) Description 06/22/2023 9:20 AM EDT Laboratory Laboratory, [facility] [address] [place] [phone] [facility] [place] [address] 06/22/2023 9:45 AM EDT Office Visit Gynecology/Obstetrics [facility] [address] [place] [address] Dinorah Haider CRNP [address] [place] [address] 06/22/2023 1:45 PM EDT Imaging Radiology, [place] [address] [place] [address] 07/21/2023 1:45 PM EDT Imaging Maternal Medicine Imaging, [facility] 132 [facility] [place] [phone] Health Maintenance Due Date Last Done Comments [...] Tdap) 12/10/2031 12/09/2021, 02/20/2013 MENINGOCOCCAL (MENACTRA/MENVEO) Completed , 02/20/2013 documented as of this encounter Medical Devices Not on filedocumented as of this encounter Care Teams Molding Press Operator Relationship Specialty Start Date End Date Shabbir Thompson MD [address] [place] [address] PCP - General Internal Medicine 07/27/21 documented as of this encounter
--- OUTSIDE RECORDS SUMMARY | 2023-09-14 09:19 | External Medical Summary | Summary of Care ---
Author Name Unknown Organization [facility] Address [address] [place] [address] Phone [phone] Care Team Providers Care Bobbin Dumper Name Role Phone Shabbir Thompson MD Primary Care Provider [phone] [phone] Reason for Visit * Reason Comments Return Visit Encounter Details Date Type Department Care Team (Late st Contact Info) Description 07/06/2023 2:15 PM EDT Office Visit Gynecology/Obstetric s Lyssa Gaines [address] [place] [address] Dinorah Haider CRNP [address] [place] [address] High-risk in third trimester*; History of gestational hypertension; History of delivery; Obesity in , antepartum; Maternal asthma complicating ; Short interval between pregnancies complicating , antepartum Allergies No known active allergiesdocumented as of this encounter (statuses as of 07/06/2023) Medications Medication Sig Dispensed Refills Start Date End Date Status Gummies 0.18-25 MG Oral Tablet Chewable Take by mouth . 0 Active Aspirin 81 MG Oral Tablet Delayed Release Take 1 Tablet by mouth in the morning. 0 Active documented as of this encounter (statuses as of 07/06/2023) Active Problems Problem Noted Date Diagnosed Date [...] as of this encounter (statuses as of 07/06/2023) Resolved Problems Problem Noted Date Diagnosed Date [...] in chart from last , delivered in [place]. Records in chart do not support this [...] as of this encounter (statuses as of 07/06/2023) Immunizations Name Administration Dates Next Due TDAP [...] money to get more. Never true 01/21/2023 [place] Depression Scale Answer Date Recorded [place] Depression Scale Total 2 02/04/2023 The thought [...] Sign Reading Time Taken Comments Blood Pressure 108/64 07/06/2023 2:38 PM EDT Pulse - - Temperature - - Respiratory Rate - - Oxygen Saturation - - Inhaled Oxygen Concentration - - Weight 116.1 kg (256 lb) 07/06/2023 2:38 PM EDT Height 157.5 cm (5' 2") 07/06/2023 2:38 PM EDT Body Mass Index 46.82 07/06/2023 2:38 PM EDT documented in this encounter Progress Notes * Dinorah Haider CRNP - 07/06/2023 2:48 PM EDT 29w6d No concerns. Baby is moving well. No contractions or bleeding. Desires repeat c/s with BTL. Message to Silvina. Growth u/s with MFM in 2 weeks. To begin NST at 34w. HEBER Kim * Suzanna Renteria LPN - 07/06/2023 2:38 PM EDT 29w6d Denies any concerns documented in this encounter Plan of Treatment Upcoming Encounters Date Type Department Care Team (Late st Contact Info) Description 07/21/2023 1:45 PM EDT Imaging Maternal Medicine Imaging, [facility] [address] [facility] [place] [phone] 07/21/2023 2:30 PM EDT Office Visit Gynecology/Obstetrics [facility] [address] [facility] [place] [address] Nafisa Vasquez [address] [place] [address] Health Maintenance Due Date Last Done Comments [...] high-risk documented in this encounter Care Teams Bobbin Dumper Relationship Specialty Start Date End Date Shabbir Thompson MD [address] [place] [address] PCP - General Internal Medicine 07/27/21 documented as of this encounter
--- OUTSIDE RECORDS SUMMARY | 2023-09-14 09:19 | External Medical Summary ---
Author Name Unknown Address Unknown Organization K01:LABORATORY [facility] [place] - [address] [facility] [address] Laboratory Report Ordering Provider Test Date Status ALEJUSTIN 07/21/2023 14:43:34 Final Observation Date Value Abnormality Reference (Units ) Status Bacterial vaginosis [Interpretation] in Vaginal fluid Qualitative 07/21/2023 14:43:34 Positive Abnormal Negative Final Positive for Bacterial Vagin osis. Correlate results with other clinical findings. Margarita sp DNA [Presence] in Vaginal fluid by Probe 07/21/2023 14:43:34 Negative Negative Final No Margarita species group RNA detected. Correlate results with other clinical findings. Margarita glabrata RNA [Presen ce] in Vaginal fluid by ARGELIA with probe detection 07/21/2023 14:43:34 Negative Negative Final No Margarita glabrata RNA dete cted. Correlate results with other clinical findings. Trichomonas vaginalis DNA [P resence] in Vaginal fluid by Probe 07/21/2023 14:43:34 Negative Negative Final No Trichomonas vaginalis RNA detected. Performing Location LABORATORY [facility] - [address] [facility] [address]
--- OUTSIDE RECORDS SUMMARY | 2023-09-14 09:19 | External Medical Summary | Summary of Care ---
Author Name Unknown Organization [facility] Address [address] [place] [address] Phone [phone] Care Team Providers Care Billet Sawyer Name Role Phone Shabbir Thompson MD Primary Care Provider [phone] [phone] Encounter Details Date Type Department Care Team (Late st Contact Info) Description 06/22/2023 1:45 PM EDT Office Visit Application Consultant Obstetrics Maternal Medicine[address] [address] Joellen Marks, DO [address] [place], [place] [id number] Obesity in , antepartum*; Ultrasound for screening for growth restriction; 28 weeks gestation of Allergies No known active allergiesdocumented as of this encounter (statuses as of 06/24/2023) Medications Medication Sig Dispensed Refills Start Date End Date Status Gummies 0.18-25 MG Oral Tablet Chewable Take by mouth . 0 Active Aspirin 81 MG Oral Tablet Delayed Release Take 1 Tablet by mouth in the morning. 0 Active documented as of this encounter (statuses as of 06/24/2023) Active Problems Problem Noted Date Diagnosed Date High-risk 03/04/2023 Short interval between pregn ancies complicating , antepartum 03/04/2023 Overview: Last delivery C/S 02/2022 Maternal asthma complicating Overview: Managed with albuterol as needed Reports has an albuterol inhaler 11/22/23 last albuterol use 2021 Reports had RSV [...] as of this encounter (statuses as of 06/24/2023) Resolved Problems Problem Noted Date Diagnosed Date [...] in chart from last , delivered in [place]. Records in chart do not support this [...] as of this encounter (statuses as of 06/24/2023) Immunizations Name Administration Dates Next Due TDAP [...] money to get more. Never true 01/21/2023 [place] Depression Scale Answer Date Recorded [place] Depression Scale Total 2 02/04/2023 The thought [...] encounter Progress Notes * Joellen Marks, - 06/24/2023 8:40 AM EDT Holly presented for an ultrasound for the following indications: Obesity in , antepartum Ultrasound for screening for growth restriction 28 weeks gestation of Ultrasound summary: Patient presented at 27w 6d for growth assessment. Normal growth with EFW 1257 g at 67%ile. Normal SALENA at 19.7 cm. Cephalic presentation. I reviewed the ultrasound [...] call with any questions. Joellen Marks DO 06/24/2023 8:40 AM documented in this encounter Plan of Treatment Upcoming Encounters Date Type Department Care Team (Late st Contact Info) Description 07/06/2023 2:15 PM EDT Office Visit [facility] [address] [facility] [place] [address] Dinorah Haider CRNP [address] [place] [address] 07/21/2023 1:45 PM EDT Imaging [facility] [address] [place] [phone] 07/21/2023 2:30 PM EDT Office Visit [facility] [address] [place] [address] Nafisa Vasquez, ROSEANNE [address] [facility] [place] [address] Health Maintenance Due Date Last Done Comments [...] restriction screening for growth retardation using ultrasonics 28 weeks gestation of state, incidental documented in this encounter Care Teams Billet Sawyer Relationship Specialty Start Date End Date Shabbir Thompson MD [address] [place] [address] PCP - General Internal Medicine 07/27/21 documented as of this encounter
--- OUTSIDE RECORDS SUMMARY | 2023-09-14 09:20 | External Medical Summary | Summary of Care ---
Author Name Unknown Organization [facility] Address [address] [place] [address] Phone [phone] Care Team Providers Care Utilities Operator Name Role Phone Shabbir Thompson MD Primary Care Provider [phone] [phone] Reason for Visit * Reason Comments Ultrasound Encounter Details Date Type Department Care Team (Late st Contact Info) Description 04/29/2023 12:30 PM EST Office Visit Baggage Inspector Obstetrics Maternal Medicine, [place] [address] [place], [place] [phone] Wei Myers, [address], [place] [phone] Obesity in , antepartum*; Obesity, Class III, BMI 40-49.9 (morbid obesity) ([facility]); Maternal asthma complicating ; History of gestational hypertension; History of delivery; 20 weeks gestation of ; Other specified related conditions, unspecified trimester Allergies No known active allergiesdocumented as of this encounter (statuses as of 04/29/2023) Medications Medication Sig Dispensed Refills Start Date End Date Status Gummies 0.18-25 MG Oral Tablet Chewable Take by mouth . 0 Active Aspirin 81 MG Oral Tablet Delayed Release Take 1 Tablet by mouth in the morning. 0 Active documented as of this encounter (statuses as of 04/29/2023) Active Problems Problem Noted Date Diagnosed Date [...] as of this encounter (statuses as of 04/29/2023) Resolved Problems Problem Noted Date Diagnosed Date [...] in chart from last , delivered in [place]. Records in chart do not support this [...] as of this encounter (statuses as of 04/29/2023) Immunizations Name Administration Dates Next Due TDAP [...] money to get more. Never true 01/21/2023 [place] Depression Scale Answer Date Recorded [place] Depression Scale Total 2 02/04/2023 The thought [...] as of this encounter Progress Notes * Wei Myers DO - 04/29/2023 1:36 PM EST MATERNAL MEDICINE VISIT Holly Hartman is at 20w1d who presents to [facility] for an ultrasound and follow-up of her high risk . PHYSICAL EXAM: General: pleasant, alert and oriented, no acute distress She is being seen today by Maternal- Medicine for the following reasons: Problem List Items Addressed This Visit Obesity, Class III, BMI 40-49.9 (morbid obesity) (HCC) (Chronic) History of gestational hypertension History of delivery Obesity in , antepartum - Primary She presents for a anatomy survey secondary [...] identify all anomalies, but it is reassuring thatno anomalies were seen today. Maternal asthma complicating Other Visit Diagnoses 20 weeks gestation of We reviewed today's ultrasound findings. (For full report, please refer to ultrasound report provided separately). Ms. Hartman's questions were answered to her satisfaction. RECOMMENDATIONS: Recommend surveillance starting at 34 weeks secondary to class III obesity. Recommend follow up ultrasound with MFM in 3 weeks for growth and completion of anatomy. Recommend delivery at 39 weeks gestation. Thank you for allowing us to participate in the care of this patient. Please call with any questions. Wei Myers DO 04/29/2023 1:36 PM documented in this encounter Miscellaneous Notes * Assessment & Plan Note - Wei Myers DO - 04/29/2023 1:17 PM EST Associated Problem(s): Obesity in , antepartum She presents for a anatomy survey secondary [...] identify all anomalies, but it is reassuring thatno anomalies were seen today. documented in this encounter Plan of Treatment Upcoming Encounters Date Type Department Care Team (Late st Contact Info) Description 05/25/2023 10:45 AM EST Office Visit Gynecology/Obstetrics Lyssa Gaines [address] [place] [address] Dinorah Haider CRNP [address] [place] [address] 05/25/2023 1:45 PM EST Imaging Radiology, [facility] [address] [place] [address] 06/22/2023 1:45 PM EDT Imaging Radiology, [facility] [address] [place] [address] 07/21/2023 1:45 PM EDT Imaging Maternal Medicine Imaging, [facility] Gaines [address] [place] [phone] Scheduled Orders Name Type Priority Associated Diagnoses Orde r Schedule MFM US PREG FOLLOW UP EACH FETUS Medical Imaging Routine Obesity in , antepartum Maternal asthma complicating History of gestational hypertension History of delivery Obesity, Class III, BMI 40-49.9 (morbid obesity) (HCC) Other specified related conditions, unspecified trimester 6 Occurrences starting 04/29/2023 until 10/28/2023 Health Maintenance Due Date Last Done Comments Hepatitis B (1 of 3 - 3-dose series) 2000 COVID-19 Vaccine (#1) 2000 Pneumococcal Vaccine: Pediat rics (0 to 5 Years) and At-Risk Patients (6 to 64 Years) (1 - PCV) 2006 Depression Screening 2012 GARDASIL-HPV IMMUNIZATION SE HO (2 - 2-dose series) 10/21/2013 04/23/2013 Influenza Vaccine (FLU shot) (#1) 2022 03/24/2020, [...] BMI 40-49.9 (morbid obesity) (HCC) Morbid obesity Maternal asthma complicating Other current maternal conditions classifiable elsewhere, complicating , childbirth, or the puerperium, unspecified as to episode of care History of gestational hypertension History of delivery Other postprocedural status 20 weeks gestation of state, incidental Other specified related conditions, unspecified trimester documented in this encounter Care Teams Utilities Operator Relationship Specialty Start Date End Date Shabbir Thompson MD [address] [place] [address] PCP - General Internal Medicine 07/27/21 documented as of this encounter
--- OUTSIDE RECORDS SUMMARY | 2023-09-14 09:20 | External Medical Summary | Summary of Care ---
Author Name Unknown Organization [facility] Address [address] [facility] [place] [address] Phone [phone] Care Team Providers Care Car Sales Associate Name Role Phone Shabbir Thompson MD Primary Care Provider [phone] [phone] Encounter Details Date Type Department Care Team (Late st Contact Info) Description 06/15/2023 11:00 AM EDT Nurse Only Gynecology/Obstetrics [facility] [address] [facility] [place] [address] Gw, Nurse Obgyn Injection [address] [facility] [place] [address] Allergies No known active allergiesdocumented as of [...] in chart from last , delivered in [place]. Records in chart do not support this [...] money to get more. Never true 01/21/2023 [place] Depression Scale Answer Date Recorded [place] Depression Scale Total 2 02/04/2023 The [...] Description 06/22/2023 9:20 AM EDT Laboratory [facility] [address] [place] [phone] [facility] [address] [place] [address] 06/22/2023 9:45 AM EDT Office Visit Gynecology/Obstetrics [facility] [address] [facility] [place] [address] Dinorah Haider CRNP [address] [facility] [place] [address] 06/22/2023 1:45 PM EDT Imaging Radiology, [address] [address] 07/21/2023 1:45 PM EDT Imaging Maternal Medicine Imaging, [facility] [address] [place] [phone] Pending Results Name Type Priority Associated Diagnoses [...] Negative Ketone, Urine Negative Negative mg/dL Specific [place], Urine 1.025 1.003 - 1.030 Blood, Urine [...] high-risk documented in this encounter Care Teams Car Sales Associate Relationship Specialty Start Date End Date Shabbir Thompson MD [address] [place] [address] PCP - General Internal Medicine 07/27/21 documented as of this encounter
--- OUTSIDE RECORDS SUMMARY | 2023-09-14 09:20 | External Medical Summary ---
Author Name Unknown Address Unknown Organization K01:[facility] [place] [address] [place] [address] Laboratory Report Ordering Provider Test Date Status JARRETT HAMILTON 06/15/2023 11:32:42 Final Observation Date Value Abnormality Reference (Units) Status Bacteria identified in Specimen by Culture 06/15/2023 11:32:42 No significant growth Final Test: Culture, Urine, Quant itative
Specimen Source: Urine, Clean Catch
Specimen Type: Urine
Specimen Date: 06/15/2023 11:32 AM
Result Date: 06/16/2023 12:21 PM
Result Status: Final result
Resulting Lab: [facility]
[address]
[place] [address]

CULTURE

No significant growth

null Performing Location [facility] [place] [address] [place] [id number]
--- OUTSIDE RECORDS SUMMARY | 2023-09-14 09:20 | External Medical Summary | Summary of Care ---
Author Name Unknown Organization [facility] Address [address] [facility] [place] [address] Phone [phone] Care Team Providers Care Assistant Professor Of Archaeology Name Role Phone Shabbir Thompson MD Primary Care Provider [phone] [phone] Reason for Visit * Reason Comments Return Visit Encounter Details Date Type Department Care Team (Late st Contact Info) Description 04/01/2023 4:30 PM EST Office Visit Gynecology/Obstetric s Lyssa Gaines [address] [place] [address] Shannan Cronin PA-C [address] [place] [address] High-risk in second trimester*; History of gestational hypertension; History of delivery; Obesity in , antepartum; Maternal asthma complicating ; Short interval between pregnancies complicating , antepartum Allergies No known active allergiesdocumented as of this encounter (statuses as of 04/01/2023) Medications Medication Sig Dispensed Refills Start Date End Date Status Gummies 0.18-25 MG Oral Tablet Chewable Take by mouth . 0 Active Aspirin 81 MG Oral Tablet Delayed Release Take 1 Tablet by mouth in the morning. 0 Active documented as of this encounter (statuses as of 04/01/2023) Active Problems Problem Noted Date Diagnosed Date [...] deliver by NESHA Last Assessment & Plan: CONSIDERATIONS: Discussed obstetrical risks associated with class III obesity (pre- BMI of greater than or equal to 40) Reviewed that the accuracy of ultrasound at diagnosing anomalies is significantly decreased for women with an increased BMI. RECOMMENDATIONS: Recommend restricting weight gain during to 11-20 pounds. Patient should be referred for a nutrition consult. Recommend evaluation for signs and symptoms (snoring, excessive daytime sleepiness witnessed apnea or unexplained hypoxia) of obstructive sleep apnea. If any of these are present, referral to Sleep Medicine specialist for further evaluation should be considered. Recommend performing gestational diabetes mellitus screen now (if not performed at first visit) and repeat again at 26-28 weeks if early screen is normal. Recommend Maternal- Medicine ultrasound for anatomy at 20 weeks and for growth every 4 weeks thereafter. For patients with Class 3 obesity, we recommend baseline preeclamptic labs with CBC, serum AST/ALT/creatinine and 24 hour urine protein ROLANDO if not already done. For patients with Class 3 obesity, we recommend weekly surveillance starting at 34 weeks and delivery by EDC. Recommend anesthesia consult during the antepartum period. Obesity, Class III, BMI 40-49.9 (morbid obesity) [...] as of this encounter (statuses as of 04/01/2023) Resolved Problems Problem Noted Date Diagnosed Date [...] in chart from last , delivered in [place]. Records in chart do not support this [...] as of this encounter (statuses as of 04/01/2023) Immunizations Name Administration Dates Next Due TDAP [...] money to get more. Never true 01/21/2023 [place] Depression Scale Answer Date Recorded [place] Depression Scale Total 2 02/04/2023 The thought [...] Reading Time Taken Comments Blood Pressure 114/68 04/01/2023 4:27 PM EST Pulse - - Temperature - - Respiratory Rate - - Oxygen Saturation - - Inhaled Oxygen Concentration - - Weight 110.3 kg (243 lb 3.2 oz) 04/01/2023 4:27 PM EST Height 157.5 cm (5' 2") 04/01/2023 4:27 PM EST Body Mass Index 44.48 04/01/2023 4:27 PM EST documented in this encounter Progress Notes * Shannan Cronin PA-C - 04/01/2023 4:31 PM EST 16w1d Was to ER for IV fluids following Flu A diagnosis and n/v with diarrhea. Pt reports doing better. Was struggling with asthma but doing better. Given albuterol inhaler through ER. No longer feels she needs. HR high 113 in ER likely d/t dehydration and illness, HR 87 today. Having trouble sleeping. Not discomfort, just can't fall asleep. Reviewed Unisom at bedtime. Qnatal results discussed, low risk. Gender surprise! Counseled on MSAFP, she will check with insurance and notify office if she'd like to completed. Reviewed 15-22 week window. Anatomy with MFM in about 4 weeks Denies bleeding, leaking. RTC in 4 weeks Shannan Cronin PA-C documented in this encounter Nursing Notes * Ivory Gomez RN - 04/01/2023 4:28 PM EST Patient here for RUDDY 16w1d No concerns Ivory Gomez RN documented in this encounter Plan of Treatment Upcoming Encounters Date Type Department Care Team (Late st Contact Info) Description 04/27/2023 11:45 AM EST Office Visit Gynecology/Obstetrics [facility] [address] [place] [address] BackerGladys CRNP [address] [place] [address] 04/29/2023 12:30 PM EST Office Visit House Director Obstetrics Maternal Medicine, [address] [place] [address] Wei Myers Kvng, DO [address] [place] [address] 04/29/2023 12:30 PM EST [facility] [address] [place] [address] Health Maintenance Due Date Last Done Comments [...] encounter Visit Diagnoses Diagnosis High-risk in second trimester- Primary History of gestational hypertension History [...] documented in this encounter Care Teams Assistant Professor Of Archaeology Relationship Specialty Start Date End Date Shabbir Thompson MD [address] [place] [address], [place] [address] PCP - General Internal Medicine 07/27/21 documented as of this encounter
--- OUTSIDE RECORDS SUMMARY | 2023-09-14 09:20 | External Medical Summary | Summary of Care ---
Author Name Unknown Organization [facility] Address [address] [place] [address] Phone [phone] Care Team Providers Care Slate Trimmer Name Role Phone Shabbir Thompson MD Primary Care Provider [phone] [phone] Encounter Details Date Type Department Care Team (Late st Contact Info) Description 06/15/2023 Telephone Gynecology/Obstetrics [facility] [address] [facility] [place] [address] Linda Tolentino MD [address] [facility] [place] [address] Allergies No known active [...] in chart from last , delivered in [place]. Records in chart do not support this [...] money to get more. Never true 01/21/2023 [place] Depression Scale Answer Date Recorded [place] Depression Scale Total 2 02/04/2023 The thought [...] Telephone Encounter - Ivory Gomez RN - 06/15/2023 9:31 AM EDT Called patient, made aware. She is agreeable. Added to schedule and advised to call in with any changes. She verbalized understanding. * Telephone Encounter - Ivory Gomez RN - 06/15/2023 9:29 AM EDT Yes-can she get a urine dip and BP check today Agree with recommendations Thanks * Telephone Encounter - Ivory Gomez RN - 06/15/2023 9:09 AM EDT Patient calling in 26w6d Reports mild HICKS for the past couple days. No blurry vision. + back pain since this morning rates it a 5/10 and it is constant. Drinks 5-6 bottles of water each day. Reports cloudy urine and urgency. Denies vaginal bleeding or fluid leaking. Feeling a little movement, but has anterior placenta. Has not tried tylenol for discomfort, advised to try Tylenol, increase water intake today and to call back with any changes, and we would call her back once reviewed with oncall provider. Would you like patient to have urine testing? documented in this encounter Plan of Treatment Upcoming Encounters Date Type Department Care Team (Late st Contact Info) Description 06/15/2023 11:00 AM EDT Nurse Only Gynecology/Obstetrics Lyssa Gaines [address] [place] [address] Gw, Nurse Obgyn Injection [address] [place] [address] 06/22/2023 9:20 AM EDT [facility] [address] [place] [phone] GainesKristen rojas [address] [place] [address] 06/22/2023 9:45 AM EDT Office Visit Gynecology/Obstetrics Lyssa Gaines [address] [place] [address] Dinorah Haider CRNP [address] [place] [address] 06/22/2023 1:45 PM EDT Imaging Radiology, [facility] [address] [place] [address] 07/21/2023 1:45 PM EDT Imaging [facility] [address] [place] [phone] Health Maintenance Due Date Last Done Comments Pneumococcal Vaccine: Pediat rics (0 to 5 Years) and At-Risk Patients (6 to 64 Years) (1 of 2 - PCV) 2006 Depression Screening 2012 GARDASIL-HPV IMMUNIZATION SE HO (2 - 2-dose series) 10/21/2013 04/23/2013 Hepatitis B (1 of 3 - 19+ 3- dose series) 2019 COVID-19 Vaccine (1 - 2022-2 4 season) 2022 Influenza Vaccine [...] filedocumented as of this encounter Care Teams Slate Trimmer Relationship Specialty Start Date End Date Shabbir Thompson MD [address] [place] [address] PCP - General Internal Medicine 07/27/21 documented as of this encounter
--- OUTSIDE RECORDS SUMMARY | 2023-09-14 09:20 | External Medical Summary | Summary of Care ---
Author Name Unknown Organization [facility] Address [address] [place] [address] Phone [phone] Care Team Providers Care [employer] Special Education Teacher Name Role Phone Shabbir Thompson MD Primary Care Provider [phone] Reason for Visit * Reason Comments Return Visit Encounter Details Date Type Department Care Team (Late st Contact Info) Description 04/27/2023 11:45 AM EST Office Visit Gynecology/Obstetric s Lyssa Gaines [address] [place] [address] Gladys Virk CRNP [address] [place] [address] High-risk in second trimester*; History of gestational hypertension; History of delivery; Obesity in , antepartum; Maternal asthma complicating ; Short interval between pregnancies complicating , antepartum Allergies No known active allergiesdocumented as of this encounter (statuses as of 04/27/2023) Medications Medication Sig Dispensed Refills Start Date End Date Status Gummies 0.18-25 MG Oral Tablet Chewable Take by mouth . 0 Active Aspirin 81 MG Oral Tablet Delayed Release Take 1 Tablet by mouth in the morning. 0 Active documented as of this encounter (statuses as of 04/27/2023) Active Problems Problem Noted Date Diagnosed Date [...] as of this encounter (statuses as of 04/27/2023) Resolved Problems Problem Noted Date Diagnosed Date [...] History of induced hypertension 08/05/2021 02/08/2023 Overview: PIRose Marie listed in chart from last , delivered in [place]. Records in chart do not support this diagnosis. She does report having elevated BP for a short period of time in the past, has not been on any BP meds in "years". BP at [facility] 116/68. Baseline labs and protein/creat ratio obtained at [facility] History of section complicating 08/05/2021 03/04/2023 Overview: Pushed for 3 hours, then subsequent c/s. Desires repeat C/S. documented as of this encounter (statuses as of 04/27/2023) Immunizations Name Administration Dates Next Due TDAP [...] money to get more. Never true 01/21/2023 [place] Depression Scale Answer Date Recorded [place] Depression Scale Total 2 02/04/2023 The [...] Sign Reading Time Taken Comments Blood Pressure 110/68 04/27/2023 11:26 AM EST Pulse - - Temperature - - Respiratory Rate - - Oxygen Saturation - - Inhaled Oxygen Concentration - - Weight 113.4 kg (250 lb) 04/27/2023 11:26 AM EST Height - - Body Mass Index 45.73 04/01/2023 4:27 PM EST documented in this encounter Progress Notes * Gladys Virk CRNP - 04/27/2023 11:35 AM EST 19w6d Doing well. Her anatomy scan is scheduled through MFM. Not feeling movement yet. No bleeding/cramping. Did not check insurance coverage for MSAFP; discussed timing of test. She can check and call the office if testing is desired. 4 week return HEBER Warren * Brittney Mendiola LPN - 04/27/2023 11:27 AM EST 19w6d Denies vaginal bleeding/rom Absent movement No new concerns [facility]atomy with [facility] documented in this encounter Plan of Treatment Upcoming Encounters Date Type Department Care Team (Late st Contact Info) Description 04/29/2023 12:30 PM EST Office Visit Head Of Commission Department Obstetrics Maternal Medicine, [place] [address] [place] [address] Wei Myers DO [address] [place] [address] 04/29/2023 12:30 PM EST Imaging Radiology [facility], [place] [address] [place] [address] 05/25/2023 10:45 AM EST Office [facility] [address] [place] [address] Dinorah Haider CRNP [address] [place] [address] Health Maintenance Due Date Last Done Comments [...] high-risk documented in this encounter Care Teams [employer] Special Education Teacher Relationship Specialty Start Date End Date Shabbir Thompson MD [address] [place] [address] PCP - General Internal Medicine 07/27/21 documented as of this encounter
--- OUTSIDE RECORDS SUMMARY | 2023-09-14 09:20 | External Medical Summary | Summary of Care ---
Author Name Unknown Organization [facility] Address [address] [place] [address] Phone [phone] Care Team Providers Care Frozen Food Department Manager Name Role Phone Shabbir Thompson MD Primary Care Provider [phone] Reason for Visit * Reason Onset Date Comments Referral 02/07/2023 Encounter Details Date Type Department Care Team (Late st Contact Info) Description 02/07/2023 Telephone Creative Coordinator Obstetrics Maternal Medicine, [place] [address] [place], [place] [phone] [place], Nurse Creative Coordinator [facility] [address] [place] [address] Referral Allergies No known active allergiesdocumented as of this encounter (statuses as of 05/09/2023) Medications Medication Sig Dispensed Refills Start Date End Date Status Gummies 0.18-25 MG Oral Tablet Chewable Take by mouth . 0 Active documented as of this encounter (statuses as of 05/09/2023) Active Problems Problem Noted Date Diagnosed Date [...] as of this encounter (statuses as of 05/09/2023) Resolved Problems Problem Noted Date Diagnosed Date [...] in chart from last , delivered in [place]. Records in chart do not support this [...] as of this encounter (statuses as of 05/09/2023) Immunizations Name Administration Dates Next Due TDAP [...] money to get more. Never true 01/21/2023 [place] Depression Scale Answer Date Recorded [place] Depression Scale Total 2 02/04/2023 The thought [...] encounter Miscellaneous Notes * Telephone Encounter - Divine Odonnell OSA - 02/07/2023 10:36 AM EST Appt scheduled * Telephone Encounter - Maryellen Bourne MED ASSIST - 02/07/2023 8:33 AM EST Estimated Date of Delivery: 09/15/23 Please schedule for 45 MINUTE CONSULT SIMPLE MEDICAL WITH SENIOR UNIX ADMINISTRATOR, in time frame of next available or atpatient's earliest convenience at location [facility] with the indication of class III obesity, hx c/s x2, SIP. Please schedule anatomy between 19-21 weeks (04/21/23-05/05/23). Referring Provider: Shannan Cronin PA-C documented in this encounter Plan of Treatment Upcoming Encounters Date Type Department Care Team (Late st Contact Info) Description 05/25/2023 10:45 AM EST Office Visit Gynecology/Obstetrics [facility] [address] [place] [address] Dinorah Haider CRNP [address] [place] [address] 05/25/2023 1:45 PM EST Imaging Radiology, [facility] [address] [place] [address] 06/22/2023 1:45 PM EDT Imaging Radiology, [address] [address] 07/21/2023 1:45 PM EDT Imaging Maternal Medicine Imaging, [facility] [address] [place] [address] Health Maintenance Due Date Last Done [...] filedocumented as of this encounter Care Teams Frozen Food Department Manager Relationship Specialty Start Date End Date Shabbir Thompson MD [facility] [place] [address] PCP - General Internal Medicine 07/27/21 documented as of this encounter
--- OUTSIDE RECORDS SUMMARY | 2023-09-14 09:20 | External Medical Summary | Summary of Care ---
Author Name Unknown Organization [facility] Address [address] [place] [address] Phone [phone] Care Team Providers Care Advertising Internship Name Role Phone Shabbir Thompson MD Primary Care Provider [phone] Encounter Details Date Type Department Care Team (Late st Contact Info) Description 05/25/2023 1:45 PM EST Office Visit Advertising Display Rotator Obstetrics Maternal Medicine[address] [address] Joellen Marks, DO [address] [place], [place] [phone] Obesity in , antepartum*; Ultrasound for screening for growth restriction; 23 weeks gestation of Allergies No known active allergiesdocumented as of this encounter (statuses as of 05/25/2023) Medications Medication Sig Dispensed Refills Start Date End Date Status Gummies 0.18-25 MG Oral Tablet Chewable Take by mouth . 0 Active Aspirin 81 MG Oral Tablet Delayed Release Take 1 Tablet by mouth in the morning. 0 Active documented as of this encounter (statuses as of 05/25/2023) Active Problems Problem Noted Date Diagnosed Date [...] as of this encounter (statuses as of 05/25/2023) Resolved Problems Problem Noted Date Diagnosed Date [...] in chart from last , delivered in [place]. Records in chart do not support this [...] as of this encounter (statuses as of 05/25/2023) Immunizations Name Administration Dates Next Due TDAP [...] money to get more. Never true 01/21/2023 [place] Depression Scale Answer Date Recorded [place] Depression Scale Total 2 02/04/2023 The thought [...] encounter Progress Notes * Joellen Marks, - 05/25/2023 2:03 PM EST Holly presented today at 23w6d for an ultrasound for the following indications: Obesity in , antepartum Ultrasound for screening for growth restriction 23 weeks gestation of Ultrasound summary: 23w 6d to complete the anatomy survey as well as assess growth. No evidence of structural abnormalities noted today, however some structures remain suboptimal as above. Normal interval growth with EFW 780 g at 92%. Normal [place]. Cephalic presentation. I reviewed the ultrasound images. Holly was given the opportunity to meet with me if she had any questions. Please refer to the ultrasound report for additional details about today's ultrasound examination. RECOMMENDATIONS: Recommend follow up ultrasound with MFM in 4 weeks for growth and to complete anatomy survey secondary to above indications. See prior formal MFM consultation note. Thank you for allowing us to participate in the care of this patient. Please call with any questions. Joellen Marks DO 05/25/2023 2:03 PM documented in this encounter Plan of Treatment Upcoming Encounters Date Type Department Care Team (Late st Contact Info) Description 06/22/2023 9:20 AM EDT Laboratory Laboratory, [facility] [address] [place] [phone] [facility] [address] [place] [address] 06/22/2023 9:45 AM EDT Office Visit Gynecology/Obstetrics [facility] [address] [place] [address] Dinorah Haider CRNP [address] [place] [address] 06/22/2023 1:45 PM EDT Imaging Radiology, [place] [address] [place] [address] 07/21/2023 1:45 PM EDT Imaging Maternal Medicine Imaging, [facility] [address] [place] [phone] Health Maintenance Due Date Last Done Comments [...] restriction screening for growth retardation using ultrasonics 23 weeks gestation of state, incidental documented in this encounter Care Teams Advertising Internship Relationship Specialty Start Date End Date Shabbir Thompson MD [address] [place] [address] PCP - General Internal Medicine 07/27/21 documented as of this encounter
--- OUTSIDE RECORDS SUMMARY | 2023-09-14 09:20 | External Medical Summary | Summary of Care ---
Author Name Unknown Organization [facility] Address [address] [place] [address] Phone [phone] Care Team Providers Care Stippler Name Role Phone Shabbir Thompson MD Primary Care Provider [phone] Encounter Details Date Type Department Care Team (Late st Contact Info) Description 05/25/2023 10:45 AM EST Office Visit Gynecology/Obstetric s Lyssa Jamesons [address] [place] [address] Dinorah Haider CRNP [address] [place] [address] High-risk in second trimester*; History of gestational [...] in chart from last , delivered in [place]. Records in chart do not support this [...] money to get more. Never true 01/21/[address] [place] Depression Scale Answer Date Recorded [place] Depression Scale Total 2 02/04/2023 The thought [...] Sign Reading Time Taken Comments Blood Pressure 112/64 05/25/2023 10:29 AM EST Pulse - - Temperature - - Respiratory Rate - - Oxygen Saturation - - Inhaled Oxygen Concentration - - Weight 114.8 kg (253 lb) 05/25/2023 10:29 AM EST Height 157.5 cm (5' 2") 05/25/2023 10:29 AM EST Body Mass Index 46.27 05/25/2023 10:29 AM EST documented in this encounter Progress Notes * Dinorah Haider CRNP - 05/25/2023 10:43 AM EST 23w6d No concerns. Just started feeling FM. No bleeding or LOF. Has MFM appt later today. Glucola with next visit. Wants repeat c/s with BTL, will message ground operations superintendent at next visit. HEBER Kim * Suzanna Renteria LPN - 05/25/2023 10:29 AM EST 23w6d Has mfm appt Wants tubal with Csection documented in this encounter Plan of Treatment Upcoming Encounters Date Type Department Care Team (Late st Contact Info) Description 05/25/2023 1:45 PM EST Imaging Radiology, [address] [address] 05/25/2023 1:45 PM EST Office Visit Ballistics Teacher Obstetrics Maternal Medicine, [address] [address] Joellen Marks, DO [address] [place] [address] 06/22/2023 9:20 AM EDT Laboratory Laboratory, [facility] [address] [place] [address] [facility] [address] [place] [address] 06/22/2023 9:45 AM EDT Office Visit Gynecology/Obstetrics [facility] [address] [place] [address] Dinorah Haider CRNP [address] [place] [address] 06/22/2023 1:45 PM EDT Imaging Radiology, [address] [address] 07/21/2023 1:45 PM EDT Imaging Maternal Medicine Imaging, [facility] 132 [facility] [place] [address] Scheduled Orders Name Type Priority Associated Diagnoses Orde r Schedule 50-G GESTATIONAL GLUCOSE, 1 HOUR Lab Routine High-risk in second trimester Expected: 05/25/2023, Expires: 05/24/2024 CBC WITH WBC DIFFERENTIAL AND ANEMIA REFLEX WORKUP Lab Routine High-risk in second trimester Expected: 05/25/2023, Expires: 05/24/2024 SYPHILIS ANTIBODY SCREEN WITH REFLEX TO RPR Lab Routine High-risk in second trimester Expected: 05/25/2023, Expires: 05/24/2024 Health Maintenance Due Date Last Done Comments [...] high-risk documented in this encounter Care Teams Stippler Relationship Specialty Start Date End Date Shabbir Thompson MD [facility] [place] [phone] PCP - General Internal Medicine 07/27/21 documented as of this encounter
[2023-09-14] MEDS ORDERED: NO NARCOTICS OR SEDATIVES SCH (09:30)
[2023-09-14] MEDS ORDERED: SODIUM CHLORIDE 0.9% 1,000 ML IV SCH (09:30)
[2023-09-14] MEDS ORDERED: DC INTRASPINAL MORPHINE SCH (09:30)
[2023-09-14] MEDS: LACTATED RINGER'S 1,000 ML IV SCH ×2 (13:05→18:50)
[2023-09-14] MEDS: ceFAZolin 3000MG 3,000 MG/72.5 ML BAG IV SCH (13:42)
[2023-09-14] MEDS ORDERED: MoRPHine SULFATE PF 1 MG/ML 10 ML AMP/VIAL ONE (13:46)
[2023-09-14] MEDS: CITRIC ACID/SODIUM CITRATE 15 ML UDC PO SCH (13:46)
[2023-09-14] MEDS ORDERED: PHENYLEPHRINE 100MCG/ML 10ML SYR IV ONE (15:18)
[2023-09-14] MEDS ORDERED: OXYTOCIN 10 UNITS/ML VIAL ONE ×4 (15:18→15:55)
[2023-09-14] MEDS ORDERED: KETOROLAC 30 MG/ML VIAL ONE (15:55)
[2023-09-14] MEDS: ceFAZolin 2,000 MG in SYRINGE 0 ML IV SCH (16:01)
[2023-09-14] MEDS ORDERED: HYDROCORTISONE ACETATE 25 MG SUPP PR PRN (16:20)
[2023-09-14] MEDS ORDERED: SENNA 8.6 MG TAB PO PRN (16:20)
[2023-09-14] MEDS ORDERED: BENZOCAINE 20% SPRY 85 APPLN/85 GM CAN EXT PRN (16:20)
[2023-09-14] MEDS ORDERED: MAGNESIUM HYDROXIDE SUSP 30 ML UDC PO PRN (16:20)
--- NOTE | 2023-09-14 16:44 | Operative Report ---
Post Operative Report Pre & Post Diagnosis Operation Date: 09/14/23 07:30 Pre-Op Diagnosis: History of prior sectionx2 Desires permanent sterilization Post-Op Diagnosis: Same as pre-op I identified the patient and participated in the time-out.: Yes Procedure Operation Date: 09/14/23 07:30 Actual Procedures p Repeat Section with Bilateral Tubal sterilization/ coagulation, lyse of adhesions, Live male child at 1529(Bilateral) - Shawn Navarro MD Surgeon Shawn Navarro MD Trapeze Performer [place] Estimated Blood Loss 510 Findings Consistent with Post-Op Diagnosis Baby is a viable male infant delivered at 1529 PM in cephalic presentation, Apgars 8/9, weight is 3710 g, Maternal findings, normal uterus fallopian tubes and ovaries, extensive scarring of the fascia and adhesion of omentum to parietal peritoneum and fascia Fluids 1500 ml lr Specimens Placenta Drains Valdovinos: 100 ml clear urine Anesthesia Type Spinal Complications none Disposition Accompanied Patient To Recovery: Yes Indications .Patient is a 23-year-old -0-0-2 at 39 weeks and 6 days of gestation who had prior 2 C-sections and desired permanent sterilization, declined nonsurgical reversible contraceptive options. the risks of benefits of procedure was explained in details and patient signed informed consent and for the above procedure Description of Procedure Patient was taken to operating room where a spinal anesthesia was given without difficulty. She was placed in dorsal supine position with a leftward tilt. She was prepared and draped in usual sterile fashion. A financial skin incision was made and carried through to the underlying layer of fascia with the Bovie. Fascia was incised in the midline and incision was extended laterally with the help of Beck scissors. The upper aspect of the fascial incision was grasped with 2 Owen clamps elevated the underlying rectus muscles were dissected off sharply with Beck scissors and tip of Bovie. There were thick extensive scarring on fascia and underlying muscles. Those were reduced carefully. Same thing was done on the lower incision. The rectus muscles were already in lower 1/3 in the midline, peritoneum and some fat were protruding. It was gently opened, paying attention to underlying bladder and bowels. Those were away from the area. There was a small omentum attached to anterior abdominal wall on the right side of midline. It was reduced carefully. It was hemostasis. Peritoneal incision was extended superior and inferiorly with good visualization of the bladder. Yifan abdominal retractor was used to retract the abdominal wall for good exposure. Vesicouterine peritoneum was identified, grasped with pickups and entered sharply with Metzenbaum scissors, bladder flap was created digitally and bladder blade was inserted. The lower uterine segment was intact. Uterus was incised in transverse fashion, incision was extended laterally with fingers, membranes were ruptured and clear fluid was obtained. Baby's head was delivered, followed by shoulders then body without difficulty. Mouth and nose were suctioned, the infant was dried on the field he was vigorously crying and moving. The cord was clamped times and cut at 1 minute delay and then the was handed off to the pediatric team. Then the placenta was delivered manually as intact and complete. Uterus was externalized and cleared of all clots and debris's. Uterine incision was repaired with 0 Vicryl in a running locked fashion, second umbricating layer was placed with the same suture in running locked fashion. Excellent hemostasis achieved. Cul-de-sac and the pelvis was irrigated with warm normal saline and suctioned. Incision was checked of anesthetic again. Fallopian tubes were identified grasped with [place] and coagulated with hand held ligature bilaterally. They were hemostatic bilaterally. Uterus was returned to the abdomen, it was hemostatic. The parietal peritoneum was reapproximated with 3-0 Vicryl in a running fashion and the muscles were reapproximated in the same suture in a running fashion. All of the fascia and rectus muscles were hemostatic. Rectus fascia was reapproximated with 0 Vicryl starting from both columns meeting in the midline. Subcuticular fat tissue was brought together with 2-0 Vicryl in a running fashion, skin was closed with 4-0 Monocryl in a subcuticular cuticular fashion. The mom and baby tolerated procedure well. Sponge needle instrument count was correct x3. No complications happened, I was present during whole procedure. My environmental engineering assistant was needed for retraction, hemostasis and aid during delivery of infant. I attest to the content of the Intraoperative Record and any orders documented therein. Any exceptions are noted below.
[2023-09-14] MEDS ORDERED: SODIUM CHLORIDE 0.9% 250 ML IV PRN (16:49)
--- NOTE | 2023-09-14 18:45 | Anesthesiology Progress Note ---
Date of Service September 14, 2023 Anesthesia Post Procedure Vital Signs Vital Signs: Temp Pulse Resp BP Pulse Ox 09/14/23 18:41 69 98 09/14/23 18:36 36.5 C 20 09/14/23 18:36 65 116/56 L 98 09/14/23 18:31 68 97 09/14/23 18:26 71 97 09/14/23 18:25 71 101/55 L 09/14/23 18:22 74 87 L 09/14/23 18:21 78 92 09/14/23 18:16 64 95 09/14/23 18:15 70 109/65 09/14/23 18:11 68 91 09/14/23 18:06 68 96 09/14/23 18:05 64 100/52 L 09/14/23 18:01 74 97 09/14/23 17:56 65 98 09/14/23 17:55 65 119/63 09/14/23 17:51 71 99 09/14/23 17:46 70 97 09/14/23 17:45 74 116/57 L 09/14/23 17:41 66 98 09/14/23 17:36 62 98 09/14/23 17:35 59 L 118/57 L 09/14/23 17:31 64 98 09/14/23 17:26 67 97 09/14/23 17:25 65 20 98 09/14/23 17:25 60 127/60 09/14/23 17:21 61 98 09/14/23 17:16 74 96 09/14/23 17:15 59 L 122/58 L 09/14/23 17:11 66 97 09/14/23 17:06 68 97 09/14/23 17:05 18 09/14/23 17:05 70 126/59 L 09/14/23 17:01 69 95 09/14/23 16:56 70 95 09/14/23 16:55 75 116/56 L 09/14/23 16:51 68 94 09/14/23 16:46 77 94 09/14/23 16:45 70 116/57 L 09/14/23 16:41 74 93 09/14/23 16:36 76 95 09/14/23 16:35 73 128/54 L 09/14/23 16:33 70 94 06/26/24 16:31 75 99 09/14/23 16:26 71 98 09/14/23 16:25 36.6 C 18 09/14/23 16:23 70 119/54 L 93 09/14/23 16:21 73 97 09/14/23 13:50 36.7 C 70 18 109/72 09/14/23 10:06 36.7 C 60 16 95/58 L Transfer of Care Handoff Completed per policy Notes Mental Status: alert / awake / arousable Nausea / Vomiting: adequately controlled Pain: adequately controlled Airway Patency, RR, SpO2: stable & adequate BP & HR: stable & adequate Hydration State: stable & adequate Neuraxial Anesthesia: was administered and sensory block is resolving Anesthetic Complications: no major complications apparent and Pt Satisfied with anesthetic care
[2023-09-14] MEDS: DIPHTHER/TETAN/PERTUS Vaccine (Tdap, Adol/Adult) 0.5mL IM ONE (18:51)
[2023-09-14] MEDS: SIMETHICONE 80 MG CHEW PO SCH (18:51)
[2023-09-14] MEDS: KETOROLAC 30 MG/ML VIAL IV PRN (19:39)
[2023-09-14] MEDS: ONDANSETRON INJ 2 MG/ML 2 ML VIAL IV PRN (19:39)
[2023-09-14] MEDS: OXYTOCIN 20 UNITS/LR 1,002 ML IV SCH (23:22)
[2023-09-15] MEDS: DOCUSATE SODIUM 100 MG CAP PO SCH (03:04)
[2023-09-15] MEDS ORDERED: diphenhydrAMINE 50 MG/ML VIAL IV PRN (03:17)
[2023-09-15] MEDS ORDERED: PROMETHAZINE HCL 25 MG in SODIUM CHLORIDE 0.9% 50 ML IV PRN (03:17)
[2023-09-15] MEDS ORDERED: diphenhydrAMINE Capsule 25 MG CAP PO PRN (03:17)
[2023-09-15] MEDS ORDERED: MEPERIDINE HCL 50 MG/ML CARP IV PRN (03:17)
[2023-09-15] MEDS ORDERED: ONDANSETRON INJ 2 MG/ML 2 ML VIAL IV PRN (03:17)
[2023-09-15 06:35] LABS: Basophils # (auto) 0.04 K/uL (0.00-0.20); Basophils % (auto) 0.3 %; Eosinophils # (auto) 0.08 K/uL (0.00-0.50); Eosinophils % (auto) 0.5 %; Hematocrit (blood only) 29.7 % (37.0-47.0); Hemoglobin 9.8 g/dl (12.0-16.0); Immature Granulocytes # (auto) 0.07 K/uL (0.01-0.20); Immature Granulocytes % (auto) 0.5 %; Lymphocytes # (auto) 2.66 K/uL (1.20-3.40); Lymphocytes % (auto) 17.8 %; Mean Corpuscular Hemoglobin 27.8 pg (25.0-34.0); Mean Corpuscular Volume 84.1 fL (80.0-100.0); Mean Platelet Volume 10.9 fL (9.4-12.4); Monocytes # (auto) 1.03 K/uL (0.11-0.59); Monocytes % (auto) 6.9 %; Neutrophils # (auto) 11.07 K/uL (1.40-6.50); Platelet Count 171 K/uL (130-400); RDW Coefficient of Variation 13.7 % (11.5-14.5); RDW Standard Deviation 41.7 fL (36.4-46.3); Red Blood Count 3.53 M/uL (4.20-5.40); White Blood Count 14.95 K/ul (4.8-10.8)
[2023-09-15] MEDS: PRENATAL VITAMIN 1 TAB PO SCH (08:01)
[2023-09-15] MEDS: FERROUS SULFATE 325 MG TAB PO SCH (08:02)
[2023-09-15] MEDS: KETOROLAC 30 MG/ML VIAL IV PRN (08:02)
--- NOTE | 2023-09-15 09:05 | Obstetrical Progress Note ---
Date of Service September 15, 2023 Assessment & Plan Admission and Anticipated Discharge Date Admission Date: September 14, 2023 OB Progress Note abdomen soft and non tender bowel sounds present bandage is dry urine output good vaginal bleeding scant hgb 9.8 Results & Data Vital Signs (Past 12 Hours) Vital Signs Temp Pulse Resp BP BP Pulse Ox O2 Del Method 09/15/23 07:40 36.7 C 65 18 102/67 98 Room Air 09/15/23 06:10 16 98 09/15/23 04:00 16 96 09/15/23 03:57 36.7 C 79 16 100/67 96 Room Air 09/15/23 03:05 14 96 09/15/23 02:00 16 98 09/15/23 01:00 14 97 09/15/23 00:33 16 99 09/14/23 23:15 36.6 C 75 16 99/62 L 96 Room Air 09/14/23 23:00 16 96 09/14/23 22:00 14 97 09/14/23 21:15 16 97
[2023-09-15] MEDS: oxyCODONE/ACETAMINOPHEN 5mg/325mg TAB PO PRN (12:04)
[2023-09-15] MEDS: bisacodyL 5 MG TABEC PO SCH (20:49)
[2023-09-16] MEDS: IBUPROFEN 600 MG TAB PO PRN (04:10)
[2023-09-16 07:05] LABS: Basophils # (auto) 0.06 K/uL (0.00-0.20); Basophils % (auto) 0.4 %; Eosinophils # (auto) 0.17 K/uL (0.00-0.50); Eosinophils % (auto) 1.3 %; Hematocrit (blood only) 33.2 % (37.0-47.0); Hemoglobin 10.8 g/dl (12.0-16.0); Immature Granulocytes # (auto) 0.09 K/uL (0.01-0.20); Immature Granulocytes % (auto) 0.7 %; Lymphocytes # (auto) 3.81 K/uL (1.20-3.40); Lymphocytes % (auto) 28.1 %; Mean Corpuscular Hemoglobin 27.8 pg (25.0-34.0); Mean Corpuscular Hgb Conc 32.5 g/dL (32.0-36.0); Mean Corpuscular Volume 85.3 fL (80.0-100.0); Mean Platelet Volume 10.5 fL (9.4-12.4); Monocytes # (auto) 0.87 K/uL (0.11-0.59); Monocytes % (auto) 6.4 %; Neutrophils # (auto) 8.56 K/uL (1.40-6.50); Neutrophils % (auto) 63.1 %; Platelet Count 215 K/uL (130-400); RDW Coefficient of Variation 14.2 % (11.5-14.5); RDW Standard Deviation 43.6 fL (36.4-46.3); Red Blood Count 3.89 M/uL (4.20-5.40); White Blood Count 13.56 K/ul (4.8-10.8)
--- NOTE | 2023-09-16 08:55 | Obstetrical Progress Note ---
Date of Service September 16, 2023 Assessment & Plan Admission and Anticipated Discharge Date Admission Date: September 14, 2023 Subjective Patient is seen and examined. She feels well, no complaints. Desires d/c today Pain is under control with oral meds. Ambulating without dizziness Voiding without difficulty Tolerating regular diet with out N&V Flatus + Bleeding is minimal No fever/ chills/ CP/ SOB/ N&V/ Leg pain Bottle feeding without problems Vital Signs Temp Pulse Resp BP Pulse Ox O2 Del Method 09/16/23 07:17 36.7 C 71 16 100/65 99 Room Air 09/16/23 03:30 36.7 C 75 16 94/64 L 97 Room Air Lab Results 09/14/23 09/15/23 09/16/23 Range/Units 05:59 06:02 06:43 WBC 15.08 H 14.95 H 13.56 H (4.8-10.8) K/ul RBC 4.16 L 3.53 L 3.89 L (4.20-5.40) M/uL Hgb 11.7 L 9.8 L 10.8 L (12.0-16.0) g/dl Hct 34.9 L 29.7 L 33.2 L (37.0-47.0) % MCV 83.9 84.1 85.3 (80.0-100.0) fL MCH 28.1 27.8 27.8 (25.0-34.0) pg MCHC 33.5 33.0 32.5 (32.0-36.0) g/dL RDW Std Deviation 41.8 41.7 43.6 (36.4-46.3) fL RDW Coeff of Louis 13.7 13.7 14.2 (11.5-14.5) % Plt Count 209 171 215 (130-400) K/uL MPV 10.8 10.9 10.5 (9.4-12.4) fL Immature Gran % (Auto) 0.5 0.5 0.7 % Neut % (Auto) 72.1 74.0 63.1 % Lymph % (Auto) 20.3 17.8 28.1 % [place] % (Auto) 6.4 6.9 6.4 % Eos % (Auto) 0.4 0.5 1.3 % Baso % (Auto) 0.3 0.3 0.4 % Neut # (Auto) 10.88 H 11.07 H 8.56 H (1.40-6.50) K/uL Lymph # (Auto) 3.06 2.66 3.81 H (1.20-3.40) K/uL [place] # (Auto) 0.96 H 1.03 H 0.87 H (0.11-0.59) K/uL Eos # (Auto) 0.06 0.08 0.17 (0.00-0.50) K/uL Baso # (Auto) 0.05 0.04 0.06 (0.00-0.20) K/uL Immature Gran # (Auto) 0.07 0.07 0.09 (0.01-0.20) K/uL Blood Type A Positive Antibody Screen NEGATIVE Crossmatch See Detail PE: General: Alert, orientedx3, NAD CVS: S1S2 RRR Lungs; CTAB Abd: soft, NT, ND, BS+, fundus firm, below Umbilicus Incision: Clean, dry, intact Perineum intact, Lochia rubra minimal Ext; NT, no edema AP: 23 yo s/p C Section, pod# 2 VSS Afebrile doing well Continue routine postop care Encourage ambulation, PO intake All questions were answered D/C home this afternoon Results & Data Vital Signs (Past 12 Hours) Vital Signs Temp Pulse Resp BP Pulse Ox O2 Del Method 09/16/23 07:17 36.7 C 71 16 100/65 99 Room Air 09/16/23 03:30 36.7 C 75 16 94/64 L 97 Room Air
[2023-09-16] MEDS ORDERED: bisacodyL 10 MG SUPP PR PRN (16:20)
== END 2023-09-16 12:15 | disposition home health service (06) | DRG 785 ==
LOC: 4E2 05:40 → EDSTATUS 07:30 → 4S1 15:18 → 4E2 19:19